=== PATIENT | male | born 1955 | race Caucasian/White ===

== ENCOUNTER 2019-07-02 00:49 | Inpatient (IN) | payer SELFPAY ==
[2019-07-02 02:47] LABS: Troponin I 0.269 ng/mL (< 0.028)
[2019-07-02 02:49] LABS: Phosphorus 5.2 mg/dL (2.3-4.7)
--- NOTE | 2019-07-02 03:10 | PDOC.FPRHP ---
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 Patient reports he presented today because of worsened SOB. He states his chest pressure felt like his last TN. Associated symptoms included decreased appetite, diaphoresis. He reports his dyspnea has much improved since his treatment in [place], and chest pain is resolved. Patient presented to [place] ED. He was tachypneic, tachycardic. WBC 15.1 BNP 1300 Trop 0.2 GFR 28 Cr Cl 40 LA 2.1 CXR L perihilar density, mass vs infiltrate CT chest: interstitial infiltrate bilateral upper, lower and right middle lobe consolidation concerning for infection, bilateral pleural effusions EKG: ST depression in lateral leads He was given levaquin, azithromycin, 60 mg IV lasix, nitro, fentanyl, lopressor. Covid 19 swab was drawn. - Allergies/Adverse Reactions Allergies Allergy/AdvReac Type Severity Reaction Status Date / Time Penicillins Allergy Verified 07/02/19 03:10 - History PMHx: CVA with residual left arm and leg weakness (walks with a cane); T2DM, HTN , tobacco abuse, TN in 2016 s/p stentx1 PSHx: none FHx: two brothers of TN (age 47 and 64) Social: 50 years smoking 1 -2 PPD; used to drink heavily 9 beers/day (none this past week), no drug abuse - Review of Systems General: reports: weight/appetite/sleep changes. denies: fever/chills Eyes: denies: eye pain, vision changes ENT: denies: nasal congestion, rhinorrhea Respiratory: reports: cough, shortness of breath. denies: congestion Cardiovascular: reports: chest pain. denies: palpitation, edema Gastrointestinal: denies: nausea, vomiting, diarrhea, constipation, abdominal pain, GI bleeding Genitourinary: denies: dysuria, polyuria Skin: denies: rashes, lesions Musculoskeletal: denies: pain, tenderness, swelling, arthritis/arthralgias Neurological: reports: weakness (residual from CVA). denies: numbness Psychological: denies: anxiety, depression - Vital signs BP: [110/73] HR: [101] RR: [24] Tmax: [98.6] Pox: [98]% on [2L] Wt: [88.45] - Physical Exam Constitutional: NAD, awake, alert and oriented HEENT: normocephalic and atraumatic, PERRLA, EOMI, conjunctiva clear, MMM, oropharynx clear Neck: supple, trachea midline Heart: RRR, normal S1/S2, pulses present, no edema Lungs: CTAB, no wheezing, no retractions, other (tachypneic) Abdomen: soft, non-tender, no masses/distention Neurological: other (Strength 4/5 LUE, 3/5 LLE RUE and LLE 5/5 strength) Skin: no rash/lesions, good turgor, capillary refill <2 seconds Heme/Lymphatic: no unusual bruising or bleeding, no purpura Psychiatric: normal mood and affect, good judgment and insight, intact recent and remote memory FMR H&P: Results - EKG Interpretation EKG: Repeat EKG - No ST depressions or elevations, incomplete LBBB, QT prolonged (QTc 518), nonspecific ST and T wave abnormality FMR H&P: A/P - Problem List (1) Sepsis Current Visit: Yes Status: Acute Code(s): A41.9 - SEPSIS, UNSPECIFIED ORGANISM (2) Community acquired pneumonia Current Visit: Yes Status: Acute Code(s): J18.9 - PNEUMONIA, UNSPECIFIED ORGANISM (3) HTN (hypertension) Current Visit: Yes Status: Chronic Code(s): I10 - ESSENTIAL (PRIMARY) HYPERTENSION (4) T2DM (type 2 diabetes mellitus) Current Visit: Yes Status: Chronic (5) GRAZYNA (acute kidney injury) Current Visit: Yes Status: Acute Code(s): N17.9 - ACUTE KIDNEY FAILURE, UNSPECIFIED (6) Chest pain Current Visit: Yes Status: Acute Code(s): R07.9 - CHEST PAIN, UNSPECIFIED (7) History of CVA (cerebrovascular accident) Current Visit: Yes Status: Chronic Code(s): Z86.73 - PRSNL HX OF TIA (TIA), AND CEREB INFRC W/O RESID DEFICITS (8) Hx of myocardial infarction Current Visit: Yes Status: Chronic Code(s): I25.2 - OLD MYOCARDIAL INFARCTION (9) Hx of heart artery stent Current Visit: Yes Status: Chronic Code(s): Z95.5 - PRESENCE OF CORONARY ANGIOPLASTY IMPLANT AND GRAFT (10) Transaminitis Current Visit: Yes Status: Acute Code(s): R74.0 - NONSPEC ELEV OF LEVELS OF TRANSAMNS & LACTIC ACID DEHYDRGNSE - Plan 63 yo M presents as a transfer from [place] Sepsis 2/2 bilateral Multilobar Pneumonia, CAP -WBC 15.1, tachypneic and tachycardic -CXR showed suspected COPD, L perihilar mass vs infiltrates -CT - interstitial infiltrate, bilateral upper, right middle and lower lobe consolidation concerning for infection -LA 2.1 -Covid 19 and RVP drawn in [place] -ESR, procal, CRP, D-dimer pending -S/p azithromycin and levaquin 06/30 -Continue Rocephin and azithromycin for CAP -QT somewhat prolonged on EKG, mag pending, on tele monitor, will monitor -Blood and urine cultures drawn in [place] Possible new onset CHF -Echo pending -BNP 1300 -s/p 60 mg IV lasix -Euvolemic on exam, no crackles or LE edema, SOB improved -Recommend Cardiology consult in the AM, appreciate recs, NPO for possible intervention -Strict I/Os, daily weights Typical Chest pain, ACS r/o -HEART score 8. Hx [place] with stentx1 -S/p ASA -Trop 0.2, continue to trend. May be elevated 2/2 to demand -TSH, mag, phos, A1C, lipid panel to risk stratify -Incomplete LBBB on EKG, possibly new -Recommend cards consult in AM T2DM -Not on medications -A1C pending -SSI, ACHS accuchecks Elevated alk phos and AST -Repeat CMP pending Hx CVA -Aware, LUE and LLE weakness Suspected COPD -Not in acute exacerbation currently, will not give steroids Tobacco Abuse -75 PY hx -tariff counsel cessation -Nicotine patch GRAZYNA vs CKD -GFR 28, Cr Cl 40 -possibly 2/2 to Demand -Continue to monitor HTN -patient reports taking lisinopril 10 mg at home -continue if blood pressure tolerates PCP: None DVT ppx: lovenox 40 mg Diet: CC, HH Code status: Full Addendum - Attending - Attending Attestation Date/Time: 07/02/19 2683 I personally evaluated the patient and discussed the management with Dr. [] I agree with the History, Examination, Assessment and Plan documented above with any addition or exceptions noted below. See my dictated H&P for details. doc# [id number].
[2019-07-02 05:43] LABS: Troponin I 0.263 ng/mL (< 0.028)
[2019-07-02] MEDS ORDERED: Acetaminophen 325 MG TAB PO PRN (06:17)
[2019-07-02] MEDS ORDERED: Dextrose 50% Abboject 50 ML SYRINGE SLOW IVP PRN (06:17)
[2019-07-02] MEDS ORDERED: HumaLOG 300 UNITS/3 ML VIAL SC PRN (06:17)
[2019-07-02] MEDS ORDERED: Acetaminophen 650 MG Suppository PR PRN (06:17)
[2019-07-02] MEDS ORDERED: cefTRIAXone\\ROCEPHIN 1 GM in Sodium Chloride 0.9% 100 ML IVPB SCH (06:17)
[2019-07-02] MEDS ORDERED: Dextrose 5% in Water 1,000 ML IV PRN (06:17)
[2019-07-02] MEDS ORDERED: Enoxaparin Sodium 40 MG/0.4 ML SYRINGE SC SCH (06:17)
[2019-07-02] MEDS ORDERED: Prevnar 13-Val Conj/PF 0.5 ML SYRINGE IM ONE (06:45)
--- NOTE | 2019-07-02 06:48 | HP ---
CHIEF COMPLAINT: Shortness of breath, palpitations. HISTORY OF PRESENT ILLNESS: I reviewed the case and discussed care and management of this patient with Dr. Ludy Juarez. I agree with documentation in her H and P unless otherwise stated in the following attestation. In summary, Mr. George is a 63-year-old male with past medical history of hypertension, hyperlipidemia, diabetes mellitus type 2, known coronary artery disease with stent placement and a prior myocardial infarction and CVA with residual left-sided weakness. He states he has been off all medications for significant amount of time as he does not have health insurance and cannot see a provider or afford medication. He presents with a 1-week history of worsening shortness of breath and states this worsened over the past 2-3 days. Also reports occasional palpitations. States that he is becoming short of breath whenever moving. At the ER in [place], he was found to have elevated white count, BNP, and troponin. Chest x-ray and CT were both consistent with multi-lobar pneumonia with moderate-sized bilateral pleural effusions. He was given Levaquin, azithromycin, Lasix, nitroglycerin, and Lopressor. He was also swabbed for November 28 at that time. By the time he arrived to the [place] ER, he stated his symptoms had significantly improved and he would only become short of breath with exertion. Please see Dr. Juarez's note for past medical, surgical, family, and social history PHYSICAL EXAMINATION: VITAL SIGNS: Blood pressure 119/75, pulse is 103, respiratory rate 20, temp 98.1 with a T-max of 98.2 at [place]. GENERAL: Alert and oriented x4. No obvious distress. Appropriately interactive. CARDIOVASCULAR: Normal to borderline tachycardic rate, regular rhythm. No murmurs, rubs, or gallops. PULMONARY: Lungs clear to auscultation bilaterally with no wheezing or crackles. Retractions noted. EXTREMITIES: No peripheral edema. PERTINENT LABORATORY FINDINGS: White blood cell count 15.1 with no obvious left shift and no lymphopenia. Platelets 512, hemoglobin 12.5, creatinine 2.32, BUN 31, AST 71, alkaline phosphatase 187. Initial troponin 0.207 trended up to 0.269. BNP 1301. UA was negative. EKG; 1. Taken in [place] showed sinus tachycardia with ST depressions predominantly noted in lateral leads, most predominant in V4 through V6, AVR, lead I, and lead II. 2. Showed normal sinus rhythm with resolution of ST depressions, possible bundle branch block, QTc prolongation of 518. Chest x-ray interpreted by me, mild costophrenic angle blunting, bilateral infiltrates, worse in the right middle lobe perihilar region, possible increased pulmonary vascular markings. CT chest without contrast report reviewed by me, interlobar emphysematous changes, sublobar consolidations in bilateral upper lobes, right middle lobe, and right lower lobe, small pleural effusions bilaterally. ASSESSMENT AND PLAN: Mr. George is a pleasant 63-year-old male with an extensive cardiac history, extensive smoking history, who has been lost to follow up. He presented with a 1-week history of shortness of breath. He was initially found to be tachycardic with a pulse of 150. Hissymptoms have improved with IV Lasix and IV Lopressor. Given his white count,tachycardia, he met sepsis criteria and his imaging is concerning for possible COVID-19 infection. 1. Sepsis secondary to multi-lobar pneumonia, rule out COVID-19. We will continue azithromycin, add Rocephin. The patient has not received any fluids at this time, but his pulse has responded to IV Lopressor and Lasix. Possible that his symptoms are related to congestive heart failure exacerbation. We placed him in the IMCU for close monitoring and await results for COVID-19. Additional COVID labs have been ordered and will be trended if he is positive. 2. Suspected new onset congestive heart failure. We will continue gentle diuresis. Transthoracic echocardiograms to be ordered. We will consider consulting Cardiology pending results. Once he is out of this exacerbation, we will start him on the appropriate medication including beta-yumiko therapy, LIBRADO inhibitor, and depending on the degree of his heart failure, possibly spironolactone as additional diuretic therapy. 3. Elevated troponin without myocardial infarction. The patient states his chest discomfort has resolved at this time. We will continue to trend. The rate of rise is less concerning for an overt ischemic event, likely related to his sinus tachycardia he experienced in the outside ER. 4. QTc prolongation where we will continue to monitor, especially since he is on azithromycin. 5. Acute kidney injury versus chronic kidney disease. Continue to trend BMP. Also possibility that this is a cardiorenal picture, we will continue to monitor at this time. DISPOSITION: Length of stay inpatient IMCU greater than 2 midnights. TIME SPENT: Approximately 45 minutes critical care time spent on this patient. Job ID: [id number] MTDD
[2019-07-02 07:25] LABS: Hemoglobin A1c 5.8 % (4.0-6.0)
[2019-07-02 07:35] LABS: #Basophils 0.1 thou/uL (0.0-0.2); #Eosinphils 0.4 thou/uL (0.0-0.7); #Lymphocytes 1.7 thou/uL (1.20-3.40); #Monocytes 0.8 thou/uL (0.11-0.59); #Neutrophils 9.1 thou/uL (1.40-6.50); %Basophils 0.8 % (0.0-1.0); %Eosinophils 3.1 % (0.0-10.0); %Lymphocytes 13.6 % (21.0-51.0); %Monocytes 6.9 % (0.0-10.0); %Neutrophils 75.6 % (42.0-75.0); Hemoglobin 12.2 g/dL (14.0-18.0); Mean Corpuscular HGB CONC 32.4 g/dL (32.0-36.0); Mean Corpuscular Hemoglobin 29.5 pg (27.0-31.0); Mean Platelet Volume 7.9 fL (7.4-10.4); Platelet Count 458 thou/uL (130-400); RBC Distribution Width 12.5 % (11.5-14.5); Red Blood Cell (RBC) Count 4.13 mill/uL (4.70-6.10); White Blood Cell (WBC) Count 12.1 thou/uL (4.8-10.8)
[2019-07-02 07:39] LABS: Anion Gap 14 mmol/L (10-20); BUN (Urea Nitrogen) 35 mg/dL (8.4-25.7); Calc. Creatinine Clearance 37 mL/min (70-130); Carbon Dioxide 21 mmol/L (23-31); Chloride 106 mmol/L (98-107); Estimated GFR-MDRD 31; Glucose 117 mg/dL (80-115); Phosphorus 4.5 mg/dL (2.3-4.7); Potassium 4.3 mmol/L (3.5-5.1); Sodium 137 mmol/L (136-145)
[2019-07-02 07:40] LABS: CRP (Inflammatory) 6.06 mg/dL (= or < 0.5); Magnesium 2.1 mg/dL (1.6-2.6)
[2019-07-02] MEDS: Nicotine 21 MG PATCH TD SCH (07:50)
[2019-07-02] MEDS: Aspirin Chewable 81 MG TAB PO SCH (07:50)
[2019-07-02 07:59] LABS: Ferritin 253.57 ng/mL (22-322); Thyroid Stimulating Hormone 1.0285 uIU/mL (0.35-4.94)
[2019-07-02] MEDS: Azithromycin 500 MG in Sodium Chloride 0.9% 250 ML 250 ML IVPB SCH (20:31)
[2019-07-03 04:39] LABS: #Eosinphils 0.3 thou/uL (0.0-0.7); #Lymphocytes 1.9 thou/uL (1.20-3.40); #Monocytes 0.8 thou/uL (0.11-0.59); #Neutrophils 8.8 thou/uL (1.40-6.50); %Basophils 0.3 % (0.0-1.0); %Eosinophils 2.8 % (0.0-10.0); %Monocytes 7.1 % (0.0-10.0); %Neutrophils 73.9 % (42.0-75.0); Hemoglobin 11.9 g/dL (14.0-18.0); Mean Corpuscular HGB CONC 31.2 g/dL (32.0-36.0); Mean Corpuscular Hemoglobin 28.2 pg (27.0-31.0); Mean Corpuscular Volume 90.3 fL (78.0-98.0); Mean Platelet Volume 7.9 fL (7.4-10.4); Platelet Count 420 thou/uL (130-400); RBC Distribution Width 12.5 % (11.5-14.5); Red Blood Cell (RBC) Count 4.21 mill/uL (4.70-6.10); White Blood Cell (WBC) Count 11.9 thou/uL (4.8-10.8)
[2019-07-03 04:52] LABS: ALT (SGPT) 26 U/L (8-55); AST (SGOT) 15 U/L (5-34); Alkaline Phosphatase 135 U/L (40-110); Anion Gap 14 mmol/L (10-20); BUN (Urea Nitrogen) 32 mg/dL (8.4-25.7); Bilirubin, Total 0.4 mg/dL (0.2-1.2); Calc. Creatinine Clearance 42 mL/min (70-130); Calcium 8.7 mg/dL (7.8-10.44); Carbon Dioxide 19 mmol/L (23-31); Cardiac Risk 8.2 (Less than 4.5); Chloride 107 mmol/L (98-107); Cholesterol 164 mg/dl (< 200 Desired); Estimated GFR-MDRD 35; Globulin 3.1 g/dL (2.4-3.5); Glucose 118 mg/dL (80-115); HDL Cholesterol 20 mg/dL (>60 Neg Risk); LDL Cholesterol, Calculated 113 mg/dL; Potassium 4.3 mmol/L (3.5-5.1); Protein, Total 6.1 g/dL (5.8-8.1); Sodium 136 mmol/L (136-145); Triglycerides 155 mg/dL (Less than 150)
--- NOTE | 2019-07-03 06:25 | PDOC.FM ---
- Subjective Subjective: NAEO. Denies chest pain. Breathing comfortably on 2L NC oxygen - Objective Vital Signs & Weight: Vital Signs (12 hours) Temp Pulse Ox 07/03/19 04:00 98.7 F 07/03/19 00:00 98.2 F 07/02/19 20:00 95 07/02/19 19:00 98.2 F Weight Weight 77.1 kg Most Recent Monitor Data Heart Rate from ECG 108 NIBP 140/80 NIBP BP-Mean 100 Respiration from ECG 25 SpO2 98 I&O: 07/01/19 07/02/19 07/03/19 06:59 06:59 06:59 Intake Total 1498 Output Total 1545 Balance -47 Result Diagrams: 07/03/19 04:10 07/03/19 04:10 Phys Exam - Physical Examination Constitutional: NAD HEENT: PERRLA, moist MMs Neck: full ROM dec breath sounds Cardiovascular: no significant murmur tachy Gastrointestinal: soft, non-tender Musculoskeletal: no edema Neurological: moves all 4 limbs Psychiatric: normal affect, A&O x 3 Dx/Plan (1) Prolonged QT interval Code(s): R94.31 - ABNORMAL ELECTROCARDIOGRAM [ECG] [EKG] Status: Acute (2) GRAZYNA (acute kidney injury) Code(s): N17.9 - ACUTE KIDNEY FAILURE, UNSPECIFIED Status: Acute (3) Community acquired pneumonia Code(s): J18.9 - PNEUMONIA, UNSPECIFIED ORGANISM Status: Acute (4) Sepsis Code(s): A41.9 - SEPSIS, UNSPECIFIED ORGANISM Status: Acute (5) HTN (hypertension) Code(s): I10 - ESSENTIAL (PRIMARY) HYPERTENSION Status: Chronic (6) History of CVA (cerebrovascular accident) Code(s): Z86.73 - PRSNL HX OF TIA (TIA), AND CEREB INFRC W/O RESID DEFICITS Status: Chronic (7) Hx of heart artery stent Code(s): Z95.5 - PRESENCE OF CORONARY ANGIOPLASTY IMPLANT AND GRAFT Status: Chronic (8) Hx of myocardial infarction Code(s): I25.2 - OLD MYOCARDIAL INFARCTION Status: Chronic (9) T2DM (type 2 diabetes mellitus) Status: Chronic - Plan Plan: 63 yo M presents as a transfer from [place] Sepsis 2/2 bilateral Multilobar Pneumonia, CAP -WBC 15.1, tachypneic and tachycardic -CXR showed suspected COPD, L perihilar mass vs infiltrates -CT - interstitial infiltrate, bilateral upper, right middle and lower lobe consolidation concerning for infection -LA 2.1 -Covid 19 and RVP drawn in [place] -ESR, procal, CRP, D-dimer -Elevated -Continue Rocephin and azithromycin for CAP -Pending Blood and urine cultures drawn in [place] Possible new onset CHF -Echo pending -BNP 1300 -s/p 60 mg IV lasix -Euvolemic on exam, no crackles or LE edema, respiratory status stable -Strict I/Os, daily weights Typical Chest pain, ACS r/o -HEART score 8. Hx [place] with stentx1 -Cont. ASA -Trop 0.2, downtrended, likely demand -Incomplete LBBB on EKG, possibly new -Stress test s/p COVID testing HLD -ASCVD 27.9% -started statin T2DM -Questionable dx? -A1C 5.8 -SSI, ACHS accuchecks Elevated alk phos and AST -Downtrending, likely 2/2 acute illness Hx CVA -Aware, LUE and LLE weakness-stable Suspected COPD -Not in acute exacerbation currently -Hyperinflated lungs on CXR -80 pack year hx -Will start on half-way COPD maintenance meds Tobacco Abuse -75 PY hx -educational guidance counselor cessation -Nicotine patch GRAZYNA vs CKD -GFR 28, Cr Cl 40 -possibly 2/2 to Demand -Continue to monitor HTN -patient reports taking lisinopril 10 mg at home -continue if blood pressure tolerates PCP: None DVT ppx: lovenox 40 mg Diet: CC, HH Code status: Full Addendum - Attending - Attending Attestation Date/Time: 07/03/19 1004 I personally evaluated the patient and discussed the management with Dr. Jaramillo I agree with the History, Examination, Assessment and Plan documented above with any addition or exceptions noted below. 63 yo M presents as a transfer from [place] for bilateral multilobar PNA and likely COPD exacerbation. Awaiting further workup for CHF because COVID from [place] has not resulted as of yet. Tolerated RA for a while last night, now 2L. Will start MDI as COVID is going to result today per lab staff. Cultures pending. Tx Lovenox for PE until can be r/o'd post-COVID.
[2019-07-03] MEDS: cefTRIAXone\\ROCEPHIN 1 GM in Sodium Chloride 0.9% 100 ML IVPB SCH (07:52)
[2019-07-03] MEDS: Aspirin Chewable 81 MG TAB PO SCH (07:52)
[2019-07-03] MEDS: Nicotine 21 MG PATCH TD SCH (07:53)
[2019-07-03] MEDS ORDERED: NIFEdipine XL 30 MG TAB PO SCH (09:00)
[2019-07-03] MEDS ORDERED: Enoxaparin Sodium 40 MG/0.4 ML SYRINGE SC SCH ×2 (09:00→11:00)
[2019-07-03] MEDS: Albuterol 200 PUFF (6.7GM INHALER) INH PRN (13:28)
[2019-07-03] MEDS: HumaLOG 300 UNITS/3 ML VIAL SC PRN (15:38)
[2019-07-03] MEDS: Enoxaparin Sodium 80 MG/0.8 ML SYRINGE SC SCH (20:11)
[2019-07-03] MEDS: Atorvastatin Calcium 40 MG TAB PO SCH (20:11)
[2019-07-03] MEDS: Diltiazem HCl SR 60 mg Capsule PO SCH (20:11)
[2019-07-03] MEDS: Azithromycin 500 MG in Sodium Chloride 0.9% 250 ML 250 ML IVPB SCH (20:11)
[2019-07-03] MEDS ORDERED: Diazepam 5 MG TAB PO PRN (22:15)
[2019-07-03] MEDS ORDERED: Diazepam 5 MG TAB PO SCH (22:15)
[2019-07-03] MEDS ORDERED: Thiamine HCl 200 MG/2 ML VIAL IM SCH (22:15)
[2019-07-04] MEDS ORDERED: Diazepam 5 MG TAB PO PRN (04:00)
[2019-07-04 04:28] LABS: #Eosinphils 0.2 thou/uL (0.0-0.7); #Lymphocytes 1.9 thou/uL (1.20-3.40); #Monocytes 0.9 thou/uL (0.11-0.59); #Neutrophils 10.8 thou/uL (1.40-6.50); %Basophils 0.4 % (0.0-1.0); %Eosinophils 1.3 % (0.0-10.0); %Lymphocytes 13.9 % (21.0-51.0); %Monocytes 6.6 % (0.0-10.0); %Neutrophils 77.8 % (42.0-75.0); Mean Corpuscular HGB CONC 32.7 g/dL (32.0-36.0); Mean Corpuscular Hemoglobin 29.4 pg (27.0-31.0); Mean Platelet Volume 8.1 fL (7.4-10.4); Platelet Count 443 thou/uL (130-400); RBC Distribution Width 12.5 % (11.5-14.5); Red Blood Cell (RBC) Count 4.08 mill/uL (4.70-6.10); White Blood Cell (WBC) Count 13.9 thou/uL (4.8-10.8)
--- NOTE | 2019-07-04 05:44 | PDOC.FPRHP ---
- Allergies/Adverse Reactions Allergies Allergy/AdvReac Type Severity Reaction Status Date / Time Penicillins Allergy Verified 07/02/19 03:10 - History PMHx: PSHx: FHx: Social: - Vital signs BP: [] HR: [] RR: [] Tmax: [] Pox: []% on [] Wt: [] FMR H&P: Results - Labs Result Diagrams: 07/04/19 04:04 07/03/19 04:10 Lab results: WBC 13.9 thou/uL (4.8-10.8) H 07/04/19 04:04 Hgb 12.0 g/dL (14.0-18.0) L 07/04/19 04:04 Hct 36.7 % (42.0-52.0) L 07/04/19 04:04 MCV 90.0 fL (78.0-98.0) 07/04/19 04:04 Plt Count 443 thou/uL (130-400) H 07/04/19 04:04 Neutrophils % 77.8 % (42.0-75.0) H 07/04/19 04:04 ESR Westergren 51 mm/hr (Less than 20) 07/02/19 07:03 Sodium 136 mmol/L (136-145) 07/03/19 04:10 Potassium 4.3 mmol/L (3.5-5.1) 07/03/19 04:10 Chloride 107 mmol/L (98-107) 07/03/19 04:10 Carbon Dioxide 19 mmol/L (23-31) L 07/03/19 04:10 BUN 32 mg/dL (8.4-25.7) H 07/03/19 04:10 Creatinine 1.93 mg/dL (0.7-1.3) H 07/03/19 04:10 Glucose 118 mg/dL (80-115) H 07/03/19 04:10 Lactic Acid 0.9 mmol/L (0.5-2.2) 07/02/19 05:08 Calcium 8.7 mg/dL (7.8-10.44) 07/03/19 04:10 Total Bilirubin 0.4 mg/dL (0.2-1.2) 07/03/19 04:10 AST 15 U/L (5-34) 07/03/19 04:10 ALT 26 U/L (8-55) 07/03/19 04:10 Alkaline Phosphatase 135 U/L (40-110) H 07/03/19 04:10 C-Reactive Protein 6.06 mg/dL (= or < 0.5) H 07/02/19 07:03 Serum Total Protein 6.1 g/dL (5.8-8.1) 07/03/19 04:10 Albumin 3.0 g/dL (3.4-4.8) L 07/03/19 04:10 FMR H&P: A/P - Problem List (1) GRAZYNA (acute kidney injury) Current Visit: Yes Status: Acute Code(s): N17.9 - ACUTE KIDNEY FAILURE, UNSPECIFIED (2) Chest pain Current Visit: Yes Status: Acute Code(s): R07.9 - CHEST PAIN, UNSPECIFIED (3) Community acquired pneumonia Current Visit: Yes Status: Acute Code(s): J18.9 - PNEUMONIA, UNSPECIFIED ORGANISM (4) Prolonged QT interval Current Visit: Yes Status: Acute Code(s): R94.31 - ABNORMAL ELECTROCARDIOGRAM [ECG] [EKG] (5) Sepsis Current Visit: Yes Status: Acute Code(s): A41.9 - SEPSIS, UNSPECIFIED ORGANISM (6) Transaminitis Current Visit: Yes Status: Acute Code(s): R74.0 - NONSPEC ELEV OF LEVELS OF TRANSAMNS & LACTIC ACID DEHYDRGNSE (7) HTN (hypertension) Current Visit: Yes Status: Chronic Code(s): I10 - ESSENTIAL (PRIMARY) HYPERTENSION (8) History of CVA (cerebrovascular accident) Current Visit: Yes Status: Chronic Code(s): Z86.73 - PRSNL HX OF TIA (TIA), AND CEREB INFRC W/O RESID DEFICITS (9) Hx of heart artery stent Current Visit: Yes Status: Chronic Code(s): Z95.5 - PRESENCE OF CORONARY ANGIOPLASTY IMPLANT AND GRAFT (10) Hx of myocardial infarction Current Visit: Yes Status: Chronic Code(s): I25.2 - OLD MYOCARDIAL INFARCTION (11) T2DM (type 2 diabetes mellitus) Current Visit: Yes Status: Chronic - Plan Patient is a 63 y/o male who presents as a transfer from [facility] with a chief complaint of chest pressure. 1. Sepsis 2/2 Bilateral Multilobar Pneumonia, CAP -Patient was tachypneic and tachycardic upon presentation -WBC: 15.1 > 13.9 -LA: 2.1 -CXR: Suspected COPD w/ left-sided perihilar mass vs. infiltrates -CT: Interstitial infiltrate, bilateral upper, right middle and lower lobe consolidations concerning for infection -COVID-19 ([place]): Negative -RVP ([place]): Pending -ESR: Reportedly elevated -Procal: 0.12 -CRP: 6.06 -D-Dimer: 1.2 -Alk. Phos.: 135 -Will continue Ceftriaxone and Azithromycin as empiric therapy for CAP -BCx ([place]): Pending -UCx ([facility]): Pending 2. New-Onset CHF, suspected -Echo: Pending -BNP: 1300 -s/p 60 mg IV lasix -Euvolemic on exam, no crackles or LE edema, respiratory status stable -Strict I/Os, daily weights 3. Typical Chest Pain, ACS r/o -Patient stated that chest pain was similar to his previous [place] -Trop: 0.269 > 0.263 -Incomplete LBBB on EKG, possibly new -Stress Test s/p COVID testing -Possibly 2/2 demand ischemia -HEART Score: 8 -Hx of previous [place] w/ stent placement x1 -Will continue ASA -See #4 4. HLD -ASCVD: 27.9% -Initiated statin therapy 5. T2DM -Questionable Dx -HgA1c: 5.8 -ACHS Accuchecks -Mild SSI -Bedtime Mild SSI -Will continue to monitor Blood Glucose closely 6. Hx CVA -Aware, LUE and LLE weakness currently at baseline 7. COPD, suspected -Not in acute exacerbation currently -CXR: Hyperinflated lungs -80 PY Hx of Tobacco Abuse -Will start on continuous churn buttermaker COPD maintenance meds 8. Tobacco Abuse -Counseled on the importance of Tobacco Abuse cessation -Nicotine Patch 21 mg Q24H -See #7 9. GRAZYNA vs CKD -Cr: 2.32 > 1.93 -GFR: 28 -Cr: Cl 40 -Possibly 2/2 to demand ischemia -Will continue to monitor closely and trend AM labs -Avoid nephrotoxic agents 10. HTN -Patient reports home regimen of Lisinopril 10 mg PO daily -Will continue as tolerated by BP 11. Transaminitis -AST: 71 on presentation to [facility] ED -Repeat showed downtrending to WNL -Possibly 2/2 acute illness and demand ischemia PCP: CC Code: Full Diet: Heart Health w/ Low Sodium Activity: Ad angelica DVT PPx: Lovenox 40 mg Dispo: Patient is currently stable and admitted to the Telemetry Floor for ongoing treatment of CAP. Will continue ABx regimen as per above and plan for additional cardiac-related testing when tolerable. Expected LOS > 48H. FMR H&P: Upper Level - Plan Date/Time: 07/04/19 0518 I, [], have evaluated this patient and agree with findings/plan as outlined by purchasing internship resident. Pertinent changes/additions are listed here.
[2019-07-04 07:04] LABS: Anion Gap 13 mmol/L (10-20); BUN (Urea Nitrogen) 31 mg/dL (8.4-25.7); Calc. Creatinine Clearance 47 mL/min (70-130); Calcium 8.7 mg/dL (7.8-10.44); Carbon Dioxide 21 mmol/L (23-31); Chloride 107 mmol/L (98-107); Estimated GFR-MDRD 39; Glucose 120 mg/dL (80-115); Potassium 4.3 mmol/L (3.5-5.1); Sodium 137 mmol/L (136-145)
--- NOTE | 2019-07-04 08:25 | RAD ---
Chest one view HISTORY: Pneumonia. Follow-up. COMPARISON: 07/01/2019. FINDINGS: Cardiac silhouette is unremarkable. Pulmonary vasculature predominantly obscured by ill-def ined parenchymal infiltrate projecting over each upper lobe and the left lower lobe. Mediastinum remains midline. Pleural fluid not appreciated on the image. No evidence of pneumothorax. campus monitor leads overlie the chest. IMPRESSION : Multifocal pneumonia. Stable radiographic appearance.
[2019-07-04] MEDS: Enoxaparin Sodium 80 MG/0.8 ML SYRINGE SC SCH ×2 (08:40→20:27)
[2019-07-04] MEDS: Diltiazem HCl SR 60 mg Capsule PO SCH ×2 (08:40→20:27)
[2019-07-04] MEDS: Thiamine 100 MG TAB PO SCH (08:40)
[2019-07-04] MEDS: Nicotine 21 MG PATCH TD SCH (08:40)
[2019-07-04] MEDS: Multivitamin W/ Minerals 1 TAB PO SCH (08:40)
[2019-07-04] MEDS: Aspirin Chewable 81 MG TAB PO SCH (08:40)
[2019-07-04] MEDS: Folic Acid 1 MG TAB PO SCH (08:40)
[2019-07-04] MEDS: Magnesium Oxide 400 MG TAB PO SCH (08:40)
[2019-07-04] MEDS: cefTRIAXone\\ROCEPHIN 1 GM in Sodium Chloride 0.9% 100 ML IVPB SCH (08:41)
--- NOTE | 2019-07-04 09:15 | PDOC.FM ---
- Subjective Subjective: Patient had just finished using the restroom and denied any acute overnight events, such as fevers, chills, chest pain or SOB. Patient did endorse a moderate cough, but state that he otherwise felt well. - Objective Vital Signs & Weight: Vital Signs (12 hours) Temp Pulse Resp BP BP Pulse Ox 07/04/19 08:52 121/69 93 L 07/04/19 08:00 98.4 F 109 H 21 H 121/69 93 L 07/04/19 04:22 172/85 H 07/04/19 03:52 97.8 F 119 H 18 172/85 H 92 L 07/04/19 01:04 97.7 F 105 H 16 116/59 L 116/59 L 96 07/04/19 00:26 98 F 118 H 22 H 132/61 95 07/03/19 22:12 133/84 Weight Admit Weight 76.657 kg Weight 77.927 kg Most Recent Monitor Data Heart Rate from ECG 111 NIBP 158/80 NIBP BP-Mean 106 Respiration from ECG 25 SpO2 98 I&O: 07/03/19 07/04/19 07/05/19 06:59 06:59 06:59 Intake Total 1498 870 360 Output Total 1545 605 Balance -47 265 360 Result Diagrams: 07/04/19 04:04 07/04/19 06:23 Phys Exam - Physical Examination Constitutional: NAD HEENT: PERRLA, moist MMs, sclera anicteric, oral pharynx no lesions Neck: supple, full ROM Respiratory: no wheezing, no rales Course rhonchi bilaterally, w/o E-A egophany Cardiovascular: no significant murmur, no rub Tachycardia Gastrointestinal: soft, non-tender, no distention, positive bowel sounds Musculoskeletal: no edema, pulses present Neurological: non-focal, moves all 4 limbs Patient endorsed mild left-sided weakness, at baseline Lymphatic: no nodes Psychiatric: normal affect, A&O x 3 Skin: no rash Dx/Plan (1) GRAZYNA (acute kidney injury) Code(s): N17.9 - ACUTE KIDNEY FAILURE, UNSPECIFIED Status: Acute (2) Chest pain Code(s): R07.9 - CHEST PAIN, UNSPECIFIED Status: Acute (3) Community acquired pneumonia Code(s): J18.9 - PNEUMONIA, UNSPECIFIED ORGANISM Status: Acute (4) Prolonged QT interval Code(s): R94.31 - ABNORMAL ELECTROCARDIOGRAM [ECG] [EKG] Status: Acute (5) Sepsis Code(s): A41.9 - SEPSIS, UNSPECIFIED ORGANISM Status: Acute (6) Transaminitis Code(s): R74.0 - NONSPEC ELEV OF LEVELS OF TRANSAMNS & LACTIC ACID DEHYDRGNSE Status: Acute (7) HTN (hypertension) Code(s): I10 - ESSENTIAL (PRIMARY) HYPERTENSION Status: Chronic (8) History of CVA (cerebrovascular accident) Code(s): Z86.73 - PRSNL HX OF TIA (TIA), AND CEREB INFRC W/O RESID DEFICITS Status: Chronic (9) Hx of heart artery stent Code(s): Z95.5 - PRESENCE OF CORONARY ANGIOPLASTY IMPLANT AND GRAFT Status: Chronic (10) Hx of myocardial infarction Code(s): I25.2 - OLD MYOCARDIAL INFARCTION Status: Chronic (11) T2DM (type 2 diabetes mellitus) Status: Chronic - Plan Plan: Patient is a 63 y/o male who presents as a transfer from [facility] ED with a chief complaint of chest pressure. 1. Sepsis 2/2 Bilateral Multilobar Pneumonia, CAP -Patient was tachypneic and tachycardic upon presentation -WBC: 15.1 > 13.9 -LA: 2.1 -CXR: Suspected COPD w/ left-sided perihilar mass vs. infiltrates -CT: Interstitial infiltrate, bilateral upper, right middle and lower lobe consolidations concerning for infection -COVID-19 ([facility]): Negative -RVP ([facility]): Pending -ESR: Reportedly elevated -Procal: 0.12 -CRP: 6.06 -D-Dimer: 1.2 -Alk. Phos.: 135 -Will continue Ceftriaxone and Azithromycin as empiric therapy for CAP -BCx ([facility]): Pending -UCx ([facility]): Pending 2. New-Onset CHF, suspected -Echo: Pending -BNP: 1300 -s/p 60 mg IV lasix -Euvolemic on exam, no crackles or LE edema, respiratory status stable -Strict I/Os, daily weights 3. Typical Chest Pain, ACS r/o -Patient stated that chest pain was similar to his previous HI -Trop: 0.269 > 0.263 -Incomplete LBBB on EKG, possibly new -Stress Test s/p COVID testing -Possibly 2/2 demand ischemia -HEART Score: 8 -Hx of previous HI w/ stent placement x1 -Will continue ASA -See #4 4. HLD -ASCVD: 27.9% -Initiated statin therapy 5. T2DM -Questionable Dx -HgA1c: 5.8 -ACHS Accuchecks -Mild SSI -Bedtime Mild SSI -Will continue to monitor Blood Glucose closely 6. Hx CVA -Aware, LUE and LLE weakness currently at baseline 7. 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 Tobacco Abuse -Counseled on the importance of Tobacco Abuse cessation -Nicotine Patch 21 mg Q24H -See #7 9. GRAZYNA vs CKD -Cr: 2.32 > 1.93 -GFR: 28 -Cr: Cl 40 -Possibly 2/2 to demand ischemia -Will continue to monitor closely and trend AM labs -Avoid nephrotoxic agents 10. HTN -Patient reports home regimen of Lisinopril 10 mg PO daily -Will continue as tolerated by BP 11. Transaminitis -AST: 71 on presentation to [facility] ED -Repeat showed downtrending to WNL -Possibly 2/2 acute illness and demand ischemia PCP: CC Code: Full Diet: Heart Health w/ Low Sodium Activity: Ad angelica DVT PPx: Lovenox 40 mg Dispo: Patient is currently stable and admitted to the Telemetry Floor for ongoing treatment of CAP. Will continue ABx regimen as per above and plan for additional cardiac-related testing when tolerable. Expected LOS > 48H. Addendum - Attending - Attending Attestation Date/Time: 07/04/19 4036 I personally evaluated the patient and discussed the management with Dr. Muniz I agree with the History, Examination, Assessment and Plan documented above with any addition or exceptions noted below. 63 yo M presents as a transfer from [facility] for bilateral multilobar PNA. This is complicated by possible new onset CHF and possible COPD exacerbation. His workup has been delayed by awaiting COVID results which was negative. Echo pending. We are going to check a CTA because of persistent tachycardia, o2 requirement, and elevated BNP indicating possible cardiac strain. GFR is 39, will order 500ml bouls before CTA. Pending negative CTA and echo results will consult Cardiology. Start duonebs now that COVID is negative.
[2019-07-04] MEDS ORDERED: Iopamidol-370 76% 500 ML 1 ML ONE (09:44)
[2019-07-04] MEDS ORDERED: Lactated Ringer's 500 ML IV SCH (10:00)
[2019-07-04] MEDS: chlordiazePOXIDE HCl 25 MG CAP PO SCH ×3 (11:09→20:27)
--- NOTE | 2019-07-04 13:25 | CT ---
EXAM CT ANGIOGRAM CHEST WITH 3D RENDERING: History: Pneumonia, cough, shortness of breath. Comparison: Chest CT without contrast, 07-01-2019 FINDINGS: Enlarging bilateral pleural effusions. Worsening bilateral alveolar and ground glass opacity infiltra anup involving the posterior aspects of the right and left upper lobes and superior segments of the ri ght and left lower lobes. There are some minimally enlarged mediastinal lymph nodes including a right paratracheal node measuring 1.6 cm in short axis, left paratracheal nodes up to 1.1 cm as well as so me minimal enlarged right and left hilar nodes and prevascular nodes. No CT evidence for significant acute pulmonary embolism. No evidence for aortic aneurysm. Visualized upper abdomen is unremarkable. IMPRESSION: Worsening bilateral pleural effusions and worsening bilateral pneumonia. Mediastinal and hilar adenop athy, little changed. No convincing CT evidence for acute pulmonary embolism. POS: [facility]
--- NOTE | 2019-07-04 14:09 | CON ---
DATE OF CONSULTATION: HISTORY OF PRESENT ILLNESS: Skyler George is a 63-year-old male, who reported 10 days of a cough leading up to this admission. He presented to the [place] [facility]. He had patchy alveolar infiltrates. Apparently, he had stopped all of his blood pressure medicines and his diabetes medicines. He tells me that he takes his medications when he feels like he needs them. He had a dry cough, but said he could not cough anything up. He denied pleuritic chest discomfort. He was seen in the emergency department, given Lasix and noted improvement within an hour. He was transferred over here for further workup. PAST MEDICAL HISTORY: Remarkable for; 1. Diabetes. 2. Hypertension. 3. Coronary artery disease. 4. History of coronary stent. 5. History of CVA. SOCIAL HISTORY: He is a smoker. He has been a heavy beer drinker most of his life. He does not use drugs. FAMILY HISTORY: Positive for vascular disease. Negative for lung disease in early age. REVIEW OF SYSTEMS: Ten-point review of systems otherwise negative. He says he feels good and he is starting to cough up some sputum. PHYSICAL EXAMINATION: VITAL SIGNS: He is afebrile. Heart rate is 109, respiratory rate is 21, oximetry is 93, and blood pressure 120/69. HEAD AND NECK: Unremarkable. LUNGS: Remarkable for equal breath sounds. I did not hear any wheezes. HEART: Regular rhythm. S1 and S2 are normal. No gallop. ABDOMEN: Soft and nontender. EXTREMITIES: Without clubbing, cyanosis, or edema. LABORATORY DATA: White count 13.9, hemoglobin 12.0, and platelets 443. Sodium 137, potassium 4.3, chloride 107, bicarb 21, BUN 31, creatinine 1.76, glucose 120. Chest CT done in [place] shows patchy bilateral alveolar infiltrates, more consistent with pneumonia than edema. He is improving with Lasix already, there may have been a component of congestive heart failure mixed in with this. Chest radiograph today still shows persistent bilateral patchy infiltrates. He could be switched to p.o. antimicrobial therapy. He can be assessed for home oxygen needs in the morning. This is a 50-minute consult, 50% of the time was spent on the unit coordinating care. Job ID: [id number]
[2019-07-04] MEDS ORDERED: Furosemide 20 MG/2 ML VIAL SLOW IVP SCH (15:15)
[2019-07-04] MEDS: Atorvastatin Calcium 40 MG TAB PO SCH (20:27)
[2019-07-04] MEDS: Azithromycin 500 MG in Sodium Chloride 0.9% 250 ML 250 ML IVPB SCH (20:34)
[2019-07-05] MEDS: chlordiazePOXIDE HCl 25 MG CAP PO SCH ×4 (03:51→21:07)
[2019-07-05 04:34] LABS: #Basophils 0.1 thou/uL (0.0-0.2); #Eosinphils 0.1 thou/uL (0.0-0.7); #Monocytes 1.1 thou/uL (0.11-0.59); #Neutrophils 9.9 thou/uL (1.40-6.50); %Basophils 0.6 % (0.0-1.0); %Eosinophils 0.8 % (0.0-10.0); %Lymphocytes 14.9 % (21.0-51.0); %Monocytes 8.1 % (0.0-10.0); %Neutrophils 75.6 % (42.0-75.0); Hemoglobin 12.4 g/dL (14.0-18.0); Mean Corpuscular Volume 90.8 fL (78.0-98.0); Mean Platelet Volume 8.3 fL (7.4-10.4); Platelet Count 408 thou/uL (130-400); RBC Distribution Width 12.7 % (11.5-14.5); Red Blood Cell (RBC) Count 4.26 mill/uL (4.70-6.10); White Blood Cell (WBC) Count 13.1 thou/uL (4.8-10.8)
[2019-07-05 04:51] LABS: Anion Gap 15 mmol/L (10-20); BUN (Urea Nitrogen) 32 mg/dL (8.4-25.7); Calc. Creatinine Clearance 44 mL/min (70-130); Calcium 9.1 mg/dL (7.8-10.44); Carbon Dioxide 22 mmol/L (23-31); Chloride 105 mmol/L (98-107); Estimated GFR-MDRD 36; Glucose 131 mg/dL (80-115); Potassium 4.1 mmol/L (3.5-5.1); Sodium 138 mmol/L (136-145)
--- NOTE | 2019-07-05 05:39 | PDOC.FM ---
- Subjective Subjective: He says his breathing is much improved this morning with the dose of Lasix he received last night. He does not complain of chest pain. - Objective MAR Reviewed: Yes Vital Signs & Weight: Vital Signs (12 hours) Temp Pulse Resp BP BP Pulse Ox 07/05/19 03:47 97.6 F 110 H 18 159/86 H 92 L 07/04/19 20:17 98.6 F 120 H 16 136/83 136/83 96 Weight Admit Weight 76.657 kg Weight 77.111 kg Most Recent Monitor Data Heart Rate from ECG 111 NIBP 158/80 NIBP BP-Mean 106 Respiration from ECG 25 SpO2 98 I&O: 07/03/19 07/04/19 07/05/19 06:59 06:59 06:59 Intake Total 8886 883 5388 Output Total 1545 605 400 Balance -47 265 989 Result Diagrams: 07/05/19 03:54 07/05/19 03:53 EKG Reviewed by me: Yes (Sinus tachy 100-110s with PVCs) Phys Exam - Physical Examination Constitutional: NAD HEENT: PERRLA, moist MMs Neck: no nodes, supple Wheeze present on left with decreased breath sounds throughout Tachycardic with regular rhythm Gastrointestinal: soft, non-tender, positive bowel sounds Musculoskeletal: no edema, pulses present Neurological: normal sensation Psychiatric: normal affect Skin: no rash, normal turgor Dx/Plan (1) Community acquired pneumonia Code(s): J18.9 - PNEUMONIA, UNSPECIFIED ORGANISM Status: Acute (2) Sepsis Code(s): A41.9 - SEPSIS, UNSPECIFIED ORGANISM Status: Acute (3) Heart failure Code(s): I50.9 - HEART FAILURE, UNSPECIFIED Status: Acute (4) GRAZYNA (acute kidney injury) Code(s): N17.9 - ACUTE KIDNEY FAILURE, UNSPECIFIED Status: Acute (5) Chest pain Code(s): R07.9 - CHEST PAIN, UNSPECIFIED Status: Acute (6) Prolonged QT interval Code(s): R94.31 - ABNORMAL ELECTROCARDIOGRAM [ECG] [EKG] Status: Acute (7) HTN (hypertension) Code(s): I10 - ESSENTIAL (PRIMARY) HYPERTENSION Status: Chronic (8) History of CVA (cerebrovascular accident) Code(s): Z86.73 - PRSNL HX OF TIA (TIA), AND CEREB INFRC W/O RESID DEFICITS Status: Chronic (9) Hx of heart artery stent Code(s): Z95.5 - PRESENCE OF CORONARY ANGIOPLASTY IMPLANT AND GRAFT Status: Chronic (10) Hx of myocardial infarction Code(s): I25.2 - OLD MYOCARDIAL INFARCTION Status: Chronic (11) T2DM (type 2 diabetes mellitus) Status: Chronic - Plan Plan: Patient is a 63 y/o male who presents as a transfer from [facility] ED with a chief complaint of chest pressure that has since resolved. 1. Sepsis 2/2 Bilateral Multilobar Pneumonia, CAP Patient was tachypneic and tachycardic upon presentation * Labs * WBC: 15.1 > 13.9 > 13.1 * LA: 2.1 * COVID-19 ([facility]): Negative * RVP ([facility]): Negative * ESR: Reportedly elevated * Procal: 0.12 * CRP: 6.06 * D-Dimer: 1.2 * Alk. Phos.: 135 * Imaging * CXR: Suspected COPD w/ left-sided perihilar mass vs. infiltrates * CT: Interstitial infiltrate, bilateral upper, right middle and lower lobe consolidations concerning for infection * Cultures * BCx ([facility]): Pending * UCx ([facility]): Pending * Will transition to oral Amoxicillin & Azithromycin as empiric therapy for CAP 2. New-Onset CHF, suspected Euvolemic on exam, no crackles or LE edema, respiratory status stable * Echo: EF 25-30% * s/p 60 mg IV lasix & 20 mg IV * Strict I/Os, daily weights * We will consult cardiology today. 3. Typical Chest Pain, ACS r/o- Possibly 2/2 demand ischemia Patient stated that chest pain was similar to his previous TN * EKG- Incomplete LBBB, possibly new * Trop: 0.269 > 0.263 * Stress Test s/p COVID testing * Will discuss with Cardio today * HEART Score: 8 * Hx of previous TN w/ stent placement x1 * Will continue ASA 4. HLD ASCVD: 27.9% * Atorvastatin 40 mg QHS started 5. T2DM Questionable Dx * HgA1c: 5.8 * ACHS Accuchecks, Mild SSI, Bedtime Mild SSI * Will continue to monitor Blood Glucose closely 6. Hx CVA Aware, LUE and LLE weakness currently at baseline 7. COPD, suspected Not in acute exacerbation currently * CXR: Hyperinflated lungs * Hx of Tobacco Abuse * Will start on group home COPD maintenance meds * Currently being seen by case managment, we will see what he can afford 8. Tobacco Abuse Counseled on the importance of Tobacco Abuse cessation * Nicotine Patch 21 mg Q24H 9. GRAZYNA vs CKD Cr: 2.32 > 1.93 > 1.88 * GFR: 34, CrCl: 34 * Possibly 2/2 to demand ischemia * Will continue to monitor closely and trend AM labs * Avoid nephrotoxic agents 10. HTN Patient reports home regimen of Lisinopril 10 mg PO daily * Will continue as tolerated by BP 11. Transaminitis- Resolved AST: 71 on presentation to [facility] ED * Repeat showed downtrending to WNL * Possibly 2/2 acute illness and demand ischemia PCP: [facility] Code: Full Diet: Heart Health w/ Low Sodium Activity: Ad angelica DVT PPx: Lovenox 40 mg Dispo: Tele inpt for ongoing treatment of CAP. Will transition to po Abx regimen and consult Cardiology today. Expected LOS > 48H. Addendum - Attending - Attending Attestation Date/Time: 07/05/19 0438 I personally evaluated the patient and discussed the management with Dr. Corrales. I agree with the History, Examination, Assessment and Plan documented above with any addition or exceptions noted below. Patient overall stable. Cardiology on board given his severe sCHF. He continues on treatment for pneumonia. Improved oxygenation. Renal function currently CKD3. We are stopping therapeutic lovenox as no indication to continue at this time.
[2019-07-05] MEDS: Enoxaparin Sodium 80 MG/0.8 ML SYRINGE SC SCH (09:24)
[2019-07-05] MEDS: Aspirin Chewable 81 MG TAB PO SCH (09:24)
[2019-07-05] MEDS: Diltiazem HCl SR 60 mg Capsule PO SCH (09:24)
[2019-07-05] MEDS: Multivitamin W/ Minerals 1 TAB PO SCH (09:24)
[2019-07-05] MEDS: Magnesium Oxide 400 MG TAB PO SCH (09:24)
[2019-07-05] MEDS: Thiamine 100 MG TAB PO SCH (09:24)
[2019-07-05] MEDS: Folic Acid 1 MG TAB PO SCH (09:24)
[2019-07-05] MEDS: Nicotine 21 MG PATCH TD SCH (09:25)
[2019-07-05] MEDS: cefTRIAXone\\ROCEPHIN 1 GM in Sodium Chloride 0.9% 100 ML IVPB SCH (09:25)
[2019-07-05] MEDS ORDERED: Enoxaparin Sodium 40 MG/0.4 ML SYRINGE SC SCH (10:30)
--- NOTE | 2019-07-05 12:56 | PRG ---
DATE OF SERVICE: 07/05/2019 SUBJECTIVE: The patient is doing okay. No acute complaints. OBJECTIVE: VITAL SIGNS: Temperature 97.7, pulse 113, respirations 22, O2 saturation 98% on 2 L, blood pressure 142/79. HEENT: Unremarkable. NECK: No adenopathy or JVD. LUNGS: Fairly clear. CARDIAC: S1 and S2 regular. ABDOMEN: Soft. EXTREMITIES: No edema. LABORATORY DATA: White blood cell count 13.1, hematocrit 38.7, platelet count 409. Sodium 138, potassium 4.1, BUN 32, creatinine 1.8, glucose 131. ASSESSMENT: 1. Pulmonary edema. 2. Pneumonia. PLAN: Continue current care with antibiotics and diuretics. We will follow. Job ID: [id number]
[2019-07-05] MEDS ORDERED: Carvedilol 3.125 MG TAB PO SCH (17:00)
[2019-07-05] MEDS: Albuterol 200 PUFF (6.7GM INHALER) INH PRN (21:09)
[2019-07-05] MEDS: Azithromycin 500 MG in Sodium Chloride 0.9% 250 ML 250 ML IVPB SCH (21:12)
[2019-07-05] MEDS: Atorvastatin Calcium 40 MG TAB PO SCH (21:13)
--- NOTE | 2019-07-05 23:29 | CON ---
DATE OF CONSULTATION: HISTORY OF PRESENT ILLNESS: Skyler George is a 63-year-old white male who presented to the [place] [facility] complaining of some chest pressure as well as increased shortness of breath for several days. He has history of previous myocardial infarction in 2016 with a stent placed at [facility] in [place]. Also 14 years ago, he had a stroke with residual left arm and left leg weakness. He was given Lasix in the emergency room in [place] with improvement in his symptoms. He states his dyspnea is dramatically improved. PAST MEDICAL HISTORY: CVA, history of myocardial infarction, stent placement, diabetes, hypertension. MEDICATIONS: He states he gets lisinopril 20 mg from a friend of his, bites it in half and takes a half tablet once a day. He also takes an aspirin once a day. He states he has stopped taking all of his other diabetes and cardiac medications. ALLERGIES: PENICILLIN. SOCIAL HISTORY: He smokes 1-1.5 packs per day. Drinks 6 or 8 beers per day. FAMILY HISTORY: Two brothers of myocardial infarction at age 47 and 64. REVIEW OF SYSTEMS: 12-point review of systems is otherwise unremarkable. PHYSICAL EXAMINATION: VITAL SIGNS: 144/75, pulse of 110. HEENT: PERRL. NECK: Supple. CHEST: Clear. CARDIAC: S1 and S2 normal without any S3, S4, or murmurs. Carotid upstrokes normal without bruits. ABDOMEN: Normal bowel sounds without tenderness or organomegaly. EXTREMITIES: Revealed trace pretibial edema. NEUROLOGIC: Grossly intact. SKIN: Warm and dry. LABORATORY DATA: EKG revealed normal sinus rhythm with incomplete left bundle-branch block, nonspecific ST and T-wave changes. It is of note that the EKG in [place] revealed approximately [address]-segment depression in V4 through V6, which were not apparent on the EKG here. Echocardiogram revealed ejection fraction of 25% to 30% with akinesis of the anterior and septal [place], diastolic dysfunction could not be assessed, moderate mitral regurgitation, mild tricuspid regurgitation. Chest x- ray revealed bilateral infiltrates. Chest CT revealed bilateral pleural effusions and bilateral pneumonia. There is no evidence of pulmonary embolism. Hemoglobin 12.4; hematocrit 38.7; white count 13,100; platelets 408,000. D- dimer 1.20. Sodium 138, potassium 4.1, chloride 105, carbon dioxide 24, BUN 32, creatinine 1.88 (creatinine is down from 2.32 at admission), cholesterol 164, triglycerides 155, HDL 20, LDL 113. Troponin I is 0.269. BNP 1301.0. TSH is normal. IMPRESSION: 1. [id number] systolic congestive heart failure. 2. Ischemic cardiomyopathy with ejection fraction of 25% to 30%. 3. History of myocardial infarction with stent placement in 2016. 4. History of cerebrovascular accident with resulting left-sided hemiparesis 14 years ago. 5. Hypertension, uncontrolled. 6. Hypercholesterolemia, untreated. 7. Diabetes. 8. Smoker. 9. Positive family history. 10. ETOH abuse. 11. Chronic kidny disease. PLAN: The patient has been transitioned to p.o. antibiotics. He has been placed on aspirin, atorvastatin, low-dose carvedilol. I will increase his carvedilol to 6.25 b.i.d. He will be gently diuresed and his creatinine followed closely. He also chronic kidney disease and Entresto will be avoided due to his lack of funding, lack of insurance, and inability to pay for it. If his creatinine continues to remain elevated, LIBRADO and ARB drugs probably will need to be avoided as well. We will follow the patient with you. Job ID: [id number]
[2019-07-06] MEDS: chlordiazePOXIDE HCl 25 MG CAP PO SCH ×4 (03:52→21:49)
[2019-07-06 04:53] LABS: Anion Gap 15 mmol/L (10-20); BUN (Urea Nitrogen) 32 mg/dL (8.4-25.7); Calc. Creatinine Clearance 52 mL/min (70-130); Calcium 8.7 mg/dL (7.8-10.44); Carbon Dioxide 20 mmol/L (23-31); Chloride 106 mmol/L (98-107); Estimated GFR-MDRD 44; Glucose 127 mg/dL (80-115); Sodium 137 mmol/L (136-145)
--- NOTE | 2019-07-06 06:22 | PDOC.FM ---
- Subjective Subjective: He says he is not feeling short of breath. He feels like the mucous in his chest is breaking up. - Objective MAR Reviewed: Yes Vital Signs & Weight: Vital Signs (12 hours) Temp Pulse Resp BP BP BP Pulse Ox 07/06/19 03:57 118/65 07/06/19 03:54 97.9 F 97 22 H 118/65 92 L 07/06/19 03:00 101 H 18 92 L 07/06/19 00:00 97.8 F 100 20 121/66 92 L 07/05/19 20:00 96.9 F L 104 H 22 H 143/83 H 94 L Weight Admit Weight 76.657 kg Weight 78.471 kg Most Recent Monitor Data Heart Rate from ECG 111 NIBP 158/80 NIBP BP-Mean 106 Respiration from ECG 25 SpO2 98 I&O: 07/04/19 07/05/19 07/06/19 06:59 06:59 06:59 Intake Total 870 1759 1130 Output Total 605 1100 920 Balance 265 659 210 Result Diagrams: 07/05/19 03:54 07/06/19 04:04 EKG Reviewed by me: Yes (Sinus Tach) Phys Exam - Physical Examination Constitutional: NAD HEENT: moist MMs, sclera anicteric, oral pharynx no lesions Neck: no nodes, supple Respiratory: no wheezing, no rales, no rhonchi Cardiovascular: RRR, no significant murmur Gastrointestinal: soft, non-tender, positive bowel sounds Musculoskeletal: no edema, pulses present Neurological: moves all 4 limbs Psychiatric: normal affect Skin: no rash, normal turgor Dx/Plan (1) Heart failure with reduced ejection fraction Code(s): I50.20 - UNSPECIFIED SYSTOLIC (CONGESTIVE) HEART FAILURE Status: Acute (2) Community acquired pneumonia Code(s): J18.9 - PNEUMONIA, UNSPECIFIED ORGANISM Status: Acute (3) Sepsis Code(s): A41.9 - SEPSIS, UNSPECIFIED ORGANISM Status: Acute (4) GRAZYNA (acute kidney injury) Code(s): N17.9 - ACUTE KIDNEY FAILURE, UNSPECIFIED Status: Acute (5) Chest pain Code(s): R07.9 - CHEST PAIN, UNSPECIFIED Status: Acute (6) Prolonged QT interval Code(s): R94.31 - ABNORMAL ELECTROCARDIOGRAM [ECG] [EKG] Status: Acute (7) HTN (hypertension) Code(s): I10 - ESSENTIAL (PRIMARY) HYPERTENSION Status: Chronic (8) History of CVA (cerebrovascular accident) Code(s): Z86.73 - PRSNL HX OF TIA (TIA), AND CEREB INFRC W/O RESID DEFICITS Status: Chronic (9) Hx of heart artery stent Code(s): Z95.5 - PRESENCE OF CORONARY ANGIOPLASTY IMPLANT AND GRAFT Status: Chronic (10) Hx of myocardial infarction Code(s): I25.2 - OLD MYOCARDIAL INFARCTION Status: Chronic (11) T2DM (type 2 diabetes mellitus) Status: Chronic - Plan Plan: Patient is a 63 y/o male who presents as a transfer from [facility] ED with a chief complaint of chest pressure that has since resolved. 1. Sepsis 2/2 Bilateral Multilobar Pneumonia, CAP Patient was tachypneic and tachycardic upon presentation * Labs * WBC: 15.1 > 13.9 > 13.1 * LA: 2.1 * COVID-19 ([place]): Negative * RVP ([place]): Negative * ESR: Reportedly elevated * Procal: 0.12 * CRP: 6.06 * D-Dimer: 1.2 * Alk. Phos.: 135 * Imaging * CXR: Suspected COPD w/ left-sided perihilar mass vs. infiltrates * CT: Interstitial infiltrate, bilateral upper, right middle and lower lobe consolidations concerning for infection * Cultures * BCx ([place]): NG@48H * UCx ([place]): NG * Will continue on Ceftriaxone & Azithromycin as empiric therapy for CAP until discharge ready then will change to Omnicef & Azithro PO for discharge 2. HFrEF Euvolemic on exam, no crackles or LE edema, respiratory status stable * Echo: EF 25-30% * s/p 60 mg IV lasix & 20 mg IV * Strict I/Os, daily weights * Consulted Cardiology, appreciate recs. * Carvedilol started yesterday & increased to 6.125 mg BID * Started on Lasix 20 mg IV daily 3. Typical Chest Pain, ACS r/o- Possibly 2/2 demand ischemia Patient stated that chest pain was similar to his previous ND * EKG- Incomplete LBBB, possibly new * Trop: 0.269 > 0.263 * Stress Test s/p COVID testing * Will discuss with Cardio today * HEART Score: 8 * Hx of previous ND w/ stent placement x1 * Will continue ASA 4. HLD ASCVD: 27.9% * Atorvastatin 40 mg QHS started 5. T2DM Questionable Dx * HgA1c: 5.8 * ACHS Accuchecks, Mild SSI, Bedtime Mild SSI * Will continue to monitor Blood Glucose closely 6. Hx CVA Aware, LUE and LLE weakness currently at baseline 7. COPD, suspected Not in acute exacerbation currently * CXR: Hyperinflated lungs * Hx of Tobacco Abuse * Will start on longterm COPD maintenance meds: Atrovent * Currently being seen by case managment, we will see what he can afford 8. Tobacco Abuse Counseled on the importance of Tobacco Abuse cessation * Nicotine Patch 21 mg Q24H 9. GRAZYNA vs CKD Cr: 2.32 > 1.93 > 1.88 > 1.58 * GFR: 44 * Possibly 2/2 to demand ischemia * Will continue to monitor closely and trend AM labs * Avoid nephrotoxic agents 10. HTN Patient reports home regimen of Lisinopril 10 mg PO daily * Will continue as tolerated by BP * Carvedilol 6.25 mg BID added on yesterda 11. Transaminitis- Resolved AST: 71 on presentation to [facility] ED * Repeat showed downtrending to WNL * Possibly 2/2 acute illness and demand ischemia PCP: CC Code: Full Diet: Heart Health w/ Low Sodium Activity: Ad angelica DVT PPx: Lovenox 40 mg Dispo: Tele inpt for ongoing treatment of CAP. Will wean down on oxygen today with continued diuresis while monitoring kidneys and start COPD. Will follow up with case management on discharge planning. Expected LOS > 48H. Addendum - Attending - Attending Attestation Date/Time: 07/06/19 1192 I personally evaluated the patient and discussed the management with Dr. Corrales. I agree with the History, Examination, Assessment and Plan documented above with any addition or exceptions noted below. Patient resteing comfortably. Continue treatment for PNA. Cardiology on board for new onset heart failure. Will need rehab but unfunded, will need CM on board to help with placement and med assistance.
[2019-07-06] MEDS ORDERED: Carvedilol 6.25 MG TAB PO SCH (08:00)
[2019-07-06] MEDS: Folic Acid 1 MG TAB PO SCH (08:25)
[2019-07-06] MEDS: Enoxaparin Sodium 40 MG/0.4 ML SYRINGE SC SCH (08:25)
[2019-07-06] MEDS: Magnesium Oxide 400 MG TAB PO SCH (08:25)
[2019-07-06] MEDS: Aspirin Chewable 81 MG TAB PO SCH (08:25)
[2019-07-06] MEDS: Multivitamin W/ Minerals 1 TAB PO SCH (08:25)
[2019-07-06] MEDS: Thiamine 100 MG TAB PO SCH (08:25)
[2019-07-06] MEDS: cefTRIAXone\\ROCEPHIN 1 GM in Sodium Chloride 0.9% 100 ML IVPB SCH (08:25)
[2019-07-06] MEDS: Nicotine 21 MG PATCH TD SCH (08:26)
[2019-07-06] MEDS ORDERED: Furosemide 20 MG/2 ML VIAL SLOW IVP SCH ×2 (09:00→14:00)
[2019-07-06] MEDS: Ipratropium Oral Inhaler INH SCH ×3 (11:01→18:23)
[2019-07-06] MEDS: Carvedilol 6.25 MG TAB PO SCH ×2 (14:44→22:03)
--- NOTE | 2019-07-06 16:59 | PRG ---
DATE OF SERVICE: 07/06/2019 SUBJECTIVE: Skyler George has no new complaints. He was receiving metered-dose inhaler treatment when I walked in the room. We switched him to nebulizer treatments. He has had no fever. He had a CT angiogram showing no embolic disease. OBJECTIVE: LUNGS: Remarkable for coarse equal breath sounds. HEART: Regular rhythm. ABDOMEN: Soft. LABORATORY DATA: Sodium 137, potassium 4, chloride 106, bicarb 20, BUN 32, and creatinine 1.58. IMPRESSION: 1. Pneumonia. 2. Congestive heart failure. 3. Medical noncompliance. 4. Probable chronic obstructive pulmonary disease. We will discontinue the IV antibiotics. Job ID: [id number]
[2019-07-06] MEDS: Atorvastatin Calcium 40 MG TAB PO SCH (21:49)
[2019-07-06] MEDS: Cefdinir 300 MG CAP PO SCH (21:49)
[2019-07-06] MEDS: Azithromycin 500 MG in Sodium Chloride 0.9% 250 ML 250 ML IVPB SCH (22:04)
[2019-07-07] MEDS: chlordiazePOXIDE HCl 25 MG CAP PO SCH (02:08)
[2019-07-07 05:18] LABS: Anion Gap 12 mmol/L (10-20); BUN (Urea Nitrogen) 35 mg/dL (8.4-25.7); Calc. Creatinine Clearance 50 mL/min (70-130); Calcium 8.7 mg/dL (7.8-10.44); Carbon Dioxide 24 mmol/L (23-31); Chloride 104 mmol/L (98-107); Estimated GFR-MDRD 42; Glucose 163 mg/dL (80-115); Sodium 136 mmol/L (136-145)
--- NOTE | 2019-07-07 06:14 | PDOC.FM ---
- Subjective Subjective: Pt says he is continuing to breath better. He is eating well. He does not complain of any edema. He states he is sleeping well. - Objective MAR Reviewed: Yes Vital Signs & Weight: Vital Signs (12 hours) Temp Pulse Resp BP BP Pulse Ox 07/07/19 03:54 97.2 F L 92 23 H 117/63 92 L 07/06/19 23:35 20 94 L 07/06/19 22:03 138/83 07/06/19 21:33 97.6 F 105 H 20 138/83 138/83 94 L 07/06/19 18:32 100 20 93 L Weight Admit Weight 76.657 kg Weight 78.471 kg Most Recent Monitor Data Heart Rate from ECG 111 NIBP 158/80 NIBP BP-Mean 106 Respiration from ECG 25 SpO2 98 I&O: 07/05/19 07/06/19 07/07/19 06:59 06:59 06:59 Intake Total 1759 1130 960 Output Total 7661 407 1892 Balance 659 210 -90 Result Diagrams: 07/05/19 03:54 07/07/19 04:48 EKG Reviewed by me: Yes (Sinus Rhythm- Sinus Tach 90s-110s) Phys Exam - Physical Examination Constitutional: NAD HEENT: moist MMs, sclera anicteric, oral pharynx no lesions Neck: no nodes, supple Respiratory: no wheezing, no rales, no rhonchi, clear to auscultation bilateral Cardiovascular: RRR, no significant murmur, no rub Gastrointestinal: soft, non-tender, positive bowel sounds Musculoskeletal: no edema, pulses present Neurological: moves all 4 limbs Psychiatric: normal affect Skin: no rash, normal turgor Dx/Plan (1) Heart failure with reduced ejection fraction Code(s): I50.20 - UNSPECIFIED SYSTOLIC (CONGESTIVE) HEART FAILURE Status: Acute (2) Community acquired pneumonia Code(s): J18.9 - PNEUMONIA, UNSPECIFIED ORGANISM Status: Acute (3) Sepsis Code(s): A41.9 - SEPSIS, UNSPECIFIED ORGANISM Status: Acute (4) GRAZYNA (acute kidney injury) Code(s): N17.9 - ACUTE KIDNEY FAILURE, UNSPECIFIED Status: Acute (5) Chest pain Code(s): R07.9 - CHEST PAIN, UNSPECIFIED Status: Acute (6) Prolonged QT interval Code(s): R94.31 - ABNORMAL ELECTROCARDIOGRAM [ECG] [EKG] Status: Acute (7) HTN (hypertension) Code(s): I10 - ESSENTIAL (PRIMARY) HYPERTENSION Status: Chronic (8) History of CVA (cerebrovascular accident) Code(s): Z86.73 - PRSNL HX OF TIA (TIA), AND CEREB INFRC W/O RESID DEFICITS Status: Chronic (9) Hx of heart artery stent Code(s): Z95.5 - PRESENCE OF CORONARY ANGIOPLASTY IMPLANT AND GRAFT Status: Chronic (10) Hx of myocardial infarction Code(s): I25.2 - OLD MYOCARDIAL INFARCTION Status: Chronic (11) T2DM (type 2 diabetes mellitus) Status: Chronic - Plan Plan: Patient is a 63 y/o male who presents as a transfer from [facility] ED with a chief complaint of chest pressure that has since resolved. 1. Sepsis 2/2 Bilateral Multilobar Pneumonia, CAP Patient was tachypneic and tachycardic upon presentation * Labs * WBC: 15.1 > 13.1 * LA: 2.1 * COVID-19 ([place]): Negative * RVP ([place]): Negative * ESR: Reportedly elevated * Procal: 0.12 * CRP: 6.06 * D-Dimer: 1.2 * Alk. Phos.: 135 * Imaging * CXR: Suspected COPD w/ left-sided perihilar mass vs. infiltrates * CT: Interstitial infiltrate, bilateral upper, right middle and lower lobe consolidations concerning for infection * Cultures * BCx ([place]): NG@48H * UCx ([place]): NG * Currently on Omnicef & Azithro * Rocephin d/c yesterday 2. HFrEF Euvolemic on exam, no crackles or LE edema, respiratory status stable * Echo: EF 25-30% * s/p 60 mg IV lasix & 20 mg IV * Strict I/Os, daily weights * Consulted Cardiology, appreciate recs. * Carvedilol started 08/04 & increased to 6.125 mg BID * Started on Lasix 20 mg IV daily * Life Vest ordered 3. Typical Chest Pain, ACS r/o- Possibly 2/2 demand ischemia Patient stated that chest pain was similar to his previous CA * EKG- Incomplete LBBB, possibly new * Trop: 0.269 > 0.263 * Stress Test s/p COVID testing * Will discuss with Cardio today * HEART Score: 8 * Hx of previous CA w/ stent placement x1 * Will continue ASA 4. HLD ASCVD: 27.9% * Atorvastatin 40 mg QHS started 5. T2DM Questionable Dx * HgA1c: 5.8 * ACHS Accuchecks, Mild SSI, Bedtime Mild SSI * Will continue to monitor Blood Glucose closely 6. Hx CVA Aware, LUE and LLE weakness currently at baseline 7. COPD, suspected Not in acute exacerbation currently * CXR: Hyperinflated lungs * Hx of Tobacco Abuse * Will start on senior living COPD maintenance meds: Atrovent * Currently being seen by case managment, we will see what he can afford 8. Tobacco Abuse Counseled on the importance of Tobacco Abuse cessation * Nicotine Patch 21 mg Q24H 9. GRAZYNA vs CKD Cr: 2.32 > 1.66 * GFR: 42 * Possibly 2/2 to demand ischemia * Will continue to monitor closely and trend AM labs * Avoid nephrotoxic agents 10. HTN Patient reports home regimen of Lisinopril 10 mg PO daily * Will continue as tolerated by BP * Carvedilol 6.25 mg BID added on 08/04 11. Transaminitis- Resolved AST: 71 on presentation to [facility] ED * Repeat showed downtrending to WNL * Possibly 2/2 acute illness and demand ischemia 12. Alcohol Abuse Tachycardic, concerned this is a component of alcohol use * Librium was given, discontinued today * ASE protocol was in place * Thiamine given Code Status: Full Diet: Heart Health w/ Low Sodium Activity: Ad angelica DVT PPx: Lovenox 40 mg PCP: CC Dispo: Tele inpt for ongoing treatment of CAP. Will wean down on oxygen today with continued diuresis while monitoring kidneys. Will follow up with case management on discharge planning. Expected LOS > 48H. Addendum - Attending - Attending Attestation Date/Time: 07/07/19 7738 I personally evaluated the patient and discussed the management with Dr. Corrales. I agree with the History, Examination, Assessment and Plan documented above with any addition or exceptions noted below. Patient overall stable. Breathing continues to improve. Cards on board for new onset CHF. He is nearing completion of abx for pneumonia. Has deconditioning and poor social situation so dispo and post acute care may be difficult. Renal function with some decrease due to diuresis. Continue therapy.
[2019-07-07] MEDS: Ipratropium Oral Inhaler INH SCH ×4 (06:37→18:03)
[2019-07-07] MEDS: HumaLOG 300 UNITS/3 ML VIAL SC PRN (06:40)
[2019-07-07] MEDS: Cefdinir 300 MG CAP PO SCH ×2 (08:08→20:19)
[2019-07-07] MEDS: Aspirin Chewable 81 MG TAB PO SCH (08:08)
[2019-07-07] MEDS: Nicotine 21 MG PATCH TD SCH (08:08)
[2019-07-07] MEDS: Folic Acid 1 MG TAB PO SCH (08:08)
[2019-07-07] MEDS: Furosemide 40 MG TAB PO SCH (08:08)
[2019-07-07] MEDS: Enoxaparin Sodium 40 MG/0.4 ML SYRINGE SC SCH (08:08)
[2019-07-07] MEDS: Multivitamin W/ Minerals 1 TAB PO SCH (08:08)
[2019-07-07] MEDS: Thiamine 100 MG TAB PO SCH (08:09)
[2019-07-07] MEDS: Magnesium Oxide 400 MG TAB PO SCH (08:09)
[2019-07-07] MEDS: Carvedilol 6.25 MG TAB PO SCH ×3 (08:09→20:19)
--- NOTE | 2019-07-07 10:04 | PRG ---
DATE OF SERVICE: 07/07/2019 SUBJECTIVE: Skyler George has no complaints. He has only walked to the door and back. OBJECTIVE: VITAL SIGNS: He is afebrile, heart rate is 108, respiratory rate is 18, and blood pressure 147/97. He is on 3 L with sats of 97. Intake and output are -120. LUNGS: Clear. HEART: Regular rhythm. ABDOMEN: Soft, nontender. EXTREMITIES: Without edema. LABORATORY DATA: Sodium 136, potassium 4, chloride 104, bicarb 24, BUN 35, and creatinine 1.6. IMPRESSION: 1. Respiratory distress on presentation, secondary predominantly to heart failure, improved, rapidly one dose of Lasix. 2. Coexistent pneumonia. 3. Underlying obstructive lung disease. 4. Chronic kidney disease. 5. Deconditioning. 6. Medical noncompliance. PLAN: Continue current care. Job ID: [id number]
--- NOTE | 2019-07-07 11:06 | RAD ---
SINGLE VIEW OF THE CHEST: COMPARISON: 07/04/2019. HISTORY: Pneumonia. FINDINGS: A single view of the chest shows a normal-size cardiomediastinal silhouette. There are bilateral mul tifocal infiltrates. These have slightly progressed compared to the prior exam. No pleural effusion is seen. IMPRESSION: Worsening multifocal infiltrates. POS: EAA
[2019-07-07] MEDS: Azithromycin 500 MG in Sodium Chloride 0.9% 250 ML 250 ML IVPB SCH (20:20)
[2019-07-07] MEDS: Atorvastatin Calcium 40 MG TAB PO SCH (20:20)
[2019-07-08 05:03] LABS: Anion Gap 12 mmol/L (10-20); BUN (Urea Nitrogen) 36 mg/dL (8.4-25.7); Calc. Creatinine Clearance 46 mL/min (70-130); Calcium 8.7 mg/dL (7.8-10.44); Carbon Dioxide 24 mmol/L (23-31); Chloride 104 mmol/L (98-107); Estimated GFR-MDRD 40; Glucose 113 mg/dL (80-115); Potassium 3.9 mmol/L (3.5-5.1); Sodium 136 mmol/L (136-145)
[2019-07-08] MEDS: HumaLOG 300 UNITS/3 ML VIAL SC PRN (05:54)
--- NOTE | 2019-07-08 06:13 | PDOC.FM ---
- Subjective Subjective: He says he is feeling well. He has no complaints. - Objective MAR Reviewed: Yes Vital Signs & Weight: Vital Signs (12 hours) Temp Pulse Resp BP BP BP Pulse Ox 07/08/19 04:23 93 L 07/08/19 03:15 97.9 F 91 23 H 115/65 90 L 07/07/19 23:41 98 16 93 L 07/07/19 20:19 119/71 07/07/19 19:10 97.5 F L 94 18 119/71 119/71 93 L Weight Admit Weight 76.657 kg Weight 77.564 kg Most Recent Monitor Data Heart Rate from ECG 111 NIBP 158/80 NIBP BP-Mean 106 Respiration from ECG 25 SpO2 98 I&O: 07/06/19 07/07/19 07/08/19 06:59 06:59 06:59 Intake Total 1130 1330 250 Output Total 920 1450 450 Balance 210 -120 -200 Result Diagrams: 07/05/19 03:54 07/08/19 04:18 EKG Reviewed by me: Yes (SR & ST 80-110s) Phys Exam - Physical Examination Constitutional: NAD HEENT: moist MMs, oral pharynx no lesions Neck: no nodes, supple Respiratory: wheezing present Cardiovascular: RRR, no significant murmur, no rub Gastrointestinal: soft, non-tender, positive bowel sounds Musculoskeletal: no edema, pulses present Neurological: moves all 4 limbs Psychiatric: normal affect Skin: no rash, normal turgor Dx/Plan (1) Heart failure with reduced ejection fraction Code(s): I50.20 - UNSPECIFIED SYSTOLIC (CONGESTIVE) HEART FAILURE Status: Acute (2) Community acquired pneumonia Code(s): J18.9 - PNEUMONIA, UNSPECIFIED ORGANISM Status: Acute (3) Sepsis Code(s): A41.9 - SEPSIS, UNSPECIFIED ORGANISM Status: Acute (4) GRAZYNA (acute kidney injury) Code(s): N17.9 - ACUTE KIDNEY FAILURE, UNSPECIFIED Status: Acute (5) Chest pain Code(s): R07.9 - CHEST PAIN, UNSPECIFIED Status: Acute (6) Prolonged QT interval Code(s): R94.31 - ABNORMAL ELECTROCARDIOGRAM [ECG] [EKG] Status: Acute (7) HTN (hypertension) Code(s): I10 - ESSENTIAL (PRIMARY) HYPERTENSION Status: Chronic (8) History of CVA (cerebrovascular accident) Code(s): Z86.73 - PRSNL HX OF TIA (TIA), AND CEREB INFRC W/O RESID DEFICITS Status: Chronic (9) Hx of heart artery stent Code(s): Z95.5 - PRESENCE OF CORONARY ANGIOPLASTY IMPLANT AND GRAFT Status: Chronic (10) Hx of myocardial infarction Code(s): I25.2 - OLD MYOCARDIAL INFARCTION Status: Chronic (11) T2DM (type 2 diabetes mellitus) Status: Chronic - Plan Plan: Patient is a 63 y/o male who presents as a transfer from [facility] ED with a chief complaint of chest pressure that has since resolved. 1. Sepsis 2/2 Bilateral Multilobar Pneumonia, CAP Patient was tachypneic and tachycardic upon presentation * Labs * WBC: 15.1 > 13.1 * LA: 2.1 * COVID-19 ([place]): Negative * RVP ([place]): Negative * ESR: Reportedly elevated * Procal: 0.12 * CRP: 6.06 * D-Dimer: 1.2 * Alk. Phos.: 135 * Imaging * CXR: Suspected COPD w/ left-sided perihilar mass vs. infiltrates * CT: Interstitial infiltrate, bilateral upper, right middle and lower lobe consolidations concerning for infection * Cultures * BCx ([place]): NG@48H * UCx ([place]): NG * Currently on Omnicef & Azithro * Rocephin d/c 07/05 * Azithro completed 07/06 2. HFrEF Euvolemic on exam, no crackles or LE edema, respiratory status stable * Echo: EF 25-30% * s/p 60 mg IV lasix & 20 mg IV * Strict I/Os, daily weights * Consulted Cardiology, appreciate recs. * Carvedilol started 08/04 & increased to 6.125 mg BID * Started on Lasix40 mg PO daily * Life Vest ordered 3. Typical Chest Pain, ACS r/o- Possibly 2/2 demand ischemia Patient stated that chest pain was similar to his previous CT * EKG- Incomplete LBBB, possibly new * Trop: 0.269 > 0.263 * Stress Test s/p COVID testing * Will discuss with Cardio today * HEART Score: 8 * Hx of previous CT w/ stent placement x1 * Will continue ASA 4. HLD ASCVD: 27.9% * Atorvastatin 40 mg QHS started 5. T2DM Questionable Dx * HgA1c: 5.8 * ACHS Accuchecks, Mild SSI, Bedtime Mild SSI * Will continue to monitor Blood Glucose closely 6. Hx CVA Aware, LUE and LLE weakness currently at baseline 7. COPD, suspected Not in acute exacerbation currently * CXR: Hyperinflated lungs * Hx of Tobacco Abuse * Will start on intermediate frame tender COPD maintenance meds: Atrovent * Currently being seen by case managment, we will see what he can afford * Home O2 test ordered. * Nurse reported 68% overnight off of oxygen, but maintained above 89% when he was off oxygen during the day. 8. Tobacco Abuse Counseled on the importance of Tobacco Abuse cessation * Nicotine Patch 21 mg Q24H 9. CKD Cr: 2.32 > 1.73 * GFR: 40 * Possibly 2/2 to demand ischemia * Will continue to monitor closely and trend AM labs * Avoid nephrotoxic agents 10. HTN Patient reports home regimen of Lisinopril 10 mg PO daily * Will continue as tolerated by BP * Carvedilol 6.25 mg BID added on 08/04 11. Transaminitis- Resolved AST: 71 on presentation to [facility] ED * Repeat showed downtrending to WNL * Possibly 2/2 acute illness and demand ischemia 12. Alcohol Abuse Tachycardic, concerned this is a component of alcohol use * Librium was given, discontinued today * ASE protocol was in place * Thiamine given Code Status: Full Diet: 1-4 All w/ Low Sodium Activity: Ad angelica DVT PPx: Lovenox 40 mg PCP: CC Dispo: Tele inpt for ongoing treatment of CAP. Will wean down on oxygen today with continued diuresis while monitoring kidneys and await Cardiology recommendations Expected LOS > 48H. Addendum - Attending - Attending Attestation Date/Time: 07/08/19 3003 I personally evaluated the patient and discussed the management with Dr. Corrales. I agree with the History, Examination, Assessment and Plan documented above with any addition or exceptions noted below. Patient stable. Feels ok about nearing discharge. Will complete course of therapy for pneumonia today. Will need home O2 on discharge. Working with CM about getting med assistance. Cardiology has arranged for [facility] and awaiting any further recs from them. Hopeful to discharge in next day or so.
[2019-07-08] MEDS: Ipratropium Oral Inhaler INH SCH (06:45)
[2019-07-08] MEDS: Multivitamin W/ Minerals 1 TAB PO SCH (08:07)
[2019-07-08] MEDS: Nicotine 21 MG PATCH TD SCH (08:07)
[2019-07-08] MEDS: Aspirin Chewable 81 MG TAB PO SCH (08:07)
[2019-07-08] MEDS: Thiamine 100 MG TAB PO SCH (08:07)
[2019-07-08] MEDS: Enoxaparin Sodium 40 MG/0.4 ML SYRINGE SC SCH (08:07)
[2019-07-08] MEDS: Magnesium Oxide 400 MG TAB PO SCH (08:07)
[2019-07-08] MEDS: Furosemide 40 MG TAB PO SCH (08:07)
[2019-07-08] MEDS: Cefdinir 300 MG CAP PO SCH ×2 (08:07→20:00)
[2019-07-08] MEDS: Carvedilol 6.25 MG TAB PO SCH ×3 (08:07→20:00)
[2019-07-08] MEDS: Folic Acid 1 MG TAB PO SCH (08:07)
--- NOTE | 2019-07-08 13:22 | RAD ---
EXAM: CHEST ONE VIEW: 07/08/19 HISTORY: Wheezing. COMPARISON: 07/07/19. FINDINGS: Again noted are bilateral fairly extensive interstitial and alveolar parenchymal changes primarily in a perihilar distribution which appears slightly improved when compared to the 07/07/19 study but are definitely worse when compared to the 07/04/19 study. Heart size is normal. No significant pleural eff usion. IMPRESSION: Improving bilateral interstitial and alveolar opacity changes primarily in a perihilar distribution f rom 07/07/19. Continued short term follow-up. POS: RRE
[2019-07-08 13:23] VITALS: BMI 25.2
--- NOTE | 2019-07-08 15:40 | PRG ---
DATE OF SERVICE: 07/08/2019 SUBJECTIVE: Skyler George has no complaints. He is in no distress. OBJECTIVE: VITAL SIGNS: He is afebrile. Heart rate in the 90s, respiratory rates in the teens to low 20s, oximetry is 91% to 95% on 2 L cannula. LUNGS: Free of wheezes. HEART: Regular rhythm. ABDOMEN: Soft. IMPRESSION: 1. Pneumonia. I would not expect his radiograph to improve for at least 4 to 6 weeks. His radiograph today is unchanged. 2. Congestive heart failure. 3. Medical noncompliance. He is stable from pulmonary standpoint. I would recommend a followup x-ray in 6 weeks. We will sign off. Job ID: [id number]
[2019-07-08] MEDS: Atorvastatin Calcium 40 MG TAB PO SCH (20:00)
[2019-07-09 04:42] LABS: Anion Gap 12 mmol/L (10-20); BUN (Urea Nitrogen) 33 mg/dL (8.4-25.7); Calc. Creatinine Clearance 44 mL/min (70-130); Carbon Dioxide 25 mmol/L (23-31); Chloride 103 mmol/L (98-107); Estimated GFR-MDRD 37; Glucose 117 mg/dL (80-115); Potassium 4.1 mmol/L (3.5-5.1); Sodium 136 mmol/L (136-145)
--- NOTE | 2019-07-09 06:17 | PDOC.FM ---
- Subjective Subjective: He says he is doing well this morning. - Objective MAR Reviewed: Yes Vital Signs & Weight: Vital Signs (12 hours) Temp Pulse Resp BP BP BP Pulse Ox 07/09/19 04:10 114/70 07/09/19 03:55 98.3 F 96 20 114/70 99 07/09/19 02:48 94 16 93 L 07/08/19 21:31 95 18 94 L 07/08/19 20:00 112/73 07/08/19 19:15 99.2 F 95 20 112/73 112/73 93 L Weight Admit Weight 77.1 kg Weight 78.335 kg Most Recent Monitor Data Heart Rate from ECG 111 NIBP 158/80 NIBP BP-Mean 106 Respiration from ECG 25 SpO2 98 I&O: 07/07/19 07/08/19 07/09/19 06:59 06:59 06:59 Intake Total 7254 465 1548 Output Total 9390 196 0225 Balance -120 -200 345 Result Diagrams: 07/05/19 03:54 07/09/19 04:02 EKG Reviewed by me: Yes (SR 80-90s with PVCs) Phys Exam - Physical Examination Constitutional: NAD HEENT: moist MMs, sclera anicteric Neck: no nodes, supple Respiratory: no wheezing, no rales, no rhonchi, clear to auscultation bilateral Cardiovascular: RRR, no significant murmur, no rub Gastrointestinal: soft, non-tender, positive bowel sounds Musculoskeletal: no edema, pulses present Neurological: moves all 4 limbs Psychiatric: normal affect Skin: no rash, normal turgor Dx/Plan (1) Heart failure with reduced ejection fraction Code(s): I50.20 - UNSPECIFIED SYSTOLIC (CONGESTIVE) HEART FAILURE Status: Acute (2) Community acquired pneumonia Code(s): J18.9 - PNEUMONIA, UNSPECIFIED ORGANISM Status: Acute (3) Sepsis Code(s): A41.9 - SEPSIS, UNSPECIFIED ORGANISM Status: Acute (4) GRAZYNA (acute kidney injury) Code(s): N17.9 - ACUTE KIDNEY FAILURE, UNSPECIFIED Status: Acute (5) Chest pain Code(s): R07.9 - CHEST PAIN, UNSPECIFIED Status: Acute (6) Prolonged QT interval Code(s): R94.31 - ABNORMAL ELECTROCARDIOGRAM [ECG] [EKG] Status: Acute (7) HTN (hypertension) Code(s): I10 - ESSENTIAL (PRIMARY) HYPERTENSION Status: Chronic (8) History of CVA (cerebrovascular accident) Code(s): Z86.73 - PRSNL HX OF TIA (TIA), AND CEREB INFRC W/O RESID DEFICITS Status: Chronic (9) Hx of heart artery stent Code(s): Z95.5 - PRESENCE OF CORONARY ANGIOPLASTY IMPLANT AND GRAFT Status: Chronic (10) Hx of myocardial infarction Code(s): I25.2 - OLD MYOCARDIAL INFARCTION Status: Chronic (11) T2DM (type 2 diabetes mellitus) Status: Chronic - Plan Plan: Patient is a 63 y/o male who presents as a transfer from [facility] ED with a chief complaint of chest pressure that has since resolved. 1. Sepsis 2/2 Bilateral Multilobar Pneumonia, CAP Patient was tachypneic and tachycardic upon presentation * Labs * WBC: 15.1 > 13.1 * LA: 2.1 * COVID-19 ([place]): Negative * RVP ([place]): Negative * ESR: Reportedly elevated * Procal: 0.12 * CRP: 6.06 * D-Dimer: 1.2 * Alk. Phos.: 135 * Imaging * CXR: Suspected COPD w/ left-sided perihilar mass vs. infiltrates * CT: Interstitial infiltrate, bilateral upper, right middle and lower lobe consolidations concerning for infection * Cultures * BCx ([place]): NG@48H * UCx ([place]): NG * Currently on Omnicef & Azithro * Rocephin d/c 07/05 * Azithro completed 07/06 * Omnicef will complete this evening * Repeat CXR in 6 wks 2. HFrEF Euvolemic on exam, no crackles or LE edema, respiratory status stable * Echo: EF 25-30% * s/p 60 mg IV lasix & 20 mg IV * Strict I/Os, daily weights * Consulted Cardiology, appreciate recs. * Carvedilol started 08/04 & increased to 6.125 mg TID- will adjust to 12.5 mg BID * Started on Lasix40 mg PO daily * Life Vest ordered 3. Typical Chest Pain, ACS r/o- Possibly 2/2 demand ischemia Patient stated that chest pain was similar to his previous [place] * EKG- Incomplete LBBB, possibly new * Trop: 0.269 > 0.263 * Stress Test s/p COVID testing * Will discuss with Cardio today * HEART Score: 8 * Hx of previous [place] w/ stent placement x1 * Will continue ASA 4. HLD ASCVD: 27.9% * Atorvastatin 40 mg QHS started 5. T2DM Questionable Dx * HgA1c: 5.8 * ACHS Accuchecks, Mild SSI, Bedtime Mild SSI * Will continue to monitor Blood Glucose closely 6. Hx CVA Aware, LUE and LLE weakness currently at baseline 7. COPD, suspected Not in acute exacerbation currently * CXR: Hyperinflated lungs * Hx of Tobacco Abuse * Will start on prison COPD maintenance meds: Atrovent * Currently being seen by case managment, we will see what he can afford * Home O2 test ordered. * Nurse reported 68% overnight off of oxygen, but maintained above 89% when he was off oxygen during the day. 8. Tobacco Abuse Counseled on the importance of Tobacco Abuse cessation * Nicotine Patch 21 mg Q24H 9. CKD Cr: 2.32 > 1.86 * GFR: 40 * Possibly 2/2 to demand ischemia * Will continue to monitor closely and trend AM labs * Avoid nephrotoxic agents 10. HTN Patient reports home regimen of Lisinopril 10 mg PO daily * Will continue as tolerated by BP * Carvedilol 6.25 mg BID added on 08/04 11. Transaminitis- Resolved AST: 71 on presentation to [facility] ED * Repeat showed downtrending to WNL * Possibly 2/2 acute illness and demand ischemia 12. Alcohol Abuse Tachycardic, concerned this is a component of alcohol use * Librium was given, discontinued today * ASE protocol was in place * Thiamine given Code Status: Full Diet: Heart Health w/ Low Sodium Activity: Ad angelica DVT PPx: Lovenox 40 mg PCP: CC Dispo: Tele inpt for ongoing treatment of CAP. LOS > 48H. Will d/c today. Addendum - Attending - Attending Attestation Date/Time: 07/09/19 5150 I personally evaluated the patient and discussed the management with Dr. Corrales. I agree with the History, Examination, Assessment and Plan documented above with any addition or exceptions noted below. Patient overall stable. He has been approved for home o2 therapy. He will be getting some medication assistance. He is stable for discharge home and will follow up with [facility] next week.
--- NOTE | 2019-07-09 09:23 | PRG ---
DATE OF SERVICE: 07/09/2019 SUBJECTIVE: Skyler George is in no distress. OBJECTIVE: VITAL SIGNS: His oximetry has been in the low 90s on 2 L. He has been as high as 97. I do not see documentation in the computer where his room air saturation is recorded. He apparently is being set up with oxygen. He has a LifeVest on. LUNGS: Unchanged. HEART: Unchanged. ABDOMEN: Unchanged. LABORATORY DATA: His electrolytes are fine. His creatinine is 1.86 today. Creatinine was 2.18 when he was admitted, so this is probably in the range of near his baseline. IMPRESSION: Pneumonia with hypoxemia, which is not surprising. I suspect in 3 weeks will be able to get rid of his oxygen. He can follow up with me in 3 weeks for recheck of his room air saturations. I will recheck a chest x-ray in 6 weeks. Other issues include medical noncompliance with his cardiomyopathy. I have again emphasized the importance of medical compliance. Job ID: [id number]
[2019-07-09] MEDS: Folic Acid 1 MG TAB PO SCH (09:42)
[2019-07-09] MEDS: Nicotine 21 MG PATCH TD SCH (09:43)
[2019-07-09] MEDS: Thiamine 100 MG TAB PO SCH (09:43)
[2019-07-09] MEDS: Cefdinir 300 MG CAP PO SCH ×2 (09:43→14:51)
[2019-07-09] MEDS: Multivitamin W/ Minerals 1 TAB PO SCH (09:43)
[2019-07-09] MEDS: Magnesium Oxide 400 MG TAB PO SCH (09:43)
[2019-07-09] MEDS: Enoxaparin Sodium 40 MG/0.4 ML SYRINGE SC SCH (09:43)
[2019-07-09] MEDS: Furosemide 40 MG TAB PO SCH (09:43)
[2019-07-09] MEDS: Aspirin Chewable 81 MG TAB PO SCH (09:43)
[2019-07-09] MEDS: Carvedilol 6.25 MG TAB PO SCH ×2 (09:43→14:34)
[2019-07-09 12:02] VITALS: BP 127/86; TEMP 97.4
--- NOTE | 2019-07-09 22:16 | DIS ---
DATE OF ADMISSION: 07/02/2019 DATE OF DISCHARGE: 07/09/2019 ADMITTING ATTENDING: Gordo Alfaro MD DISCHARGE ATTENDING: Willie Rick MD RESIDENT: Marek Corrales MD CONSULT: * Pulmonology, Dr. Evans, pneumonia with hypoxemia, suspect in 3 weeks, so we will be able to discontinue oxygen. Follow up in 3 weeks to recheck O2 saturations and recheck chest x-ray in six weeks. I have emphasized the importance of cessation of smoking. * Cardiology, Dr. Bettencourt. The patient discharged on 12.5 mg of carvedilol, LifeVest ordered, and lisinopril was started, but discontinued due to elevated creatinine. PROCEDURES: * Chest x-ray on 07/03 shows multifocal pneumonia. * Chest CT 07/03 worsening bilateral pleural effusions and worsening bilateral pneumonia. Mediastinal and hilar adenopathy. No evidence of PE. * Echo on 07/03 shows an EF of 25% to 30%, akinetic motion of the anterior septal wall noted in the left ventricle, moderate mitral regurg, and mild tricuspid regurg. * Chest x-ray on 07/06 worsening multifocal infiltrates. Chest x-ray on 07/07, improving bilateral interstitial and alveolar opacity changes primarily in the perihilar distribution. PRIMARY DIAGNOSES: 1. Sepsis secondary to bilateral multilobar pneumonia, community-acquired pneumonia. 2. Heart failure, reduced ejection fraction. 3. Typical chest pain, acute coronary syndrome rule out possibly secondary to demand ischemia. 4. Hyperlipidemia, diabetes type 2, and chronic obstructive pulmonary disease. SECONDARY DIAGNOSES: 1. History of cerebrovascular accident 2. Chronic kidney disease 3. Hypertension 4. Transaminitis 5. Alcohol abuse. DISCHARGE MEDICATIONS: 1. Albuterol 2 puffs q.4 hours. 2. Aspirin 81 mg daily. 3. Atorvastatin 40 mg at bedtime. 4. Carvedilol 12.5 mg b.i.d. 5. Lasix 40 mg daily. 6. Ipratropium 0.06% nasal spray two sprays each naris q.i.d. for 30 days. 7. Multivitamin one tablet daily. DISCONTINUED MEDICATION: 1. Lisinopril. HISTORY OF PRESENT ILLNESS: The patient is a 63-year-old male with past medical history of diabetes type 2, hypertension, [place] in 2016 with stent x1, CVA with residual left-sided arm and leg weakness, presents for an intermittent substernal exertional chest pressure , nonradiating, associated with worsening shortness of breath over the last week. The patient reports he presented because of worsening shortness of breath. States that his chest pressure felt like his last [place], associated symptoms include decreased appetite and diaphoresis. He reports his shortness of breath has much improved since his treatment in [place] and chest pain resolved. The patient was tachycardic and tachypneic in [place] ED. Labs there were white blood cell count of 15.1, BNP of 1300, troponin of 0.2, GFR of 28, creatinine clearance of 40, and lactic acid of 2.1. Chest x-ray shows left peripheral density mass versus infiltrate. CT chest shows interstitial infiltrate bilateral upper lower and right middle lobe consolidation concerning for infection, bilateral pleural effusions. EKG shows ST depression in lateral leads. He was given Levaquin, azithromycin, 60 mg of IV Lasix, nitroglycerin, fentanyl, and Lopressor. COVID-19 was drawn and found to be negative. 1. Sepsis secondary to bilateral multilobar pneumonia, community-acquired pneumonia. The patient was tachypneic and tachycardic upon presentation, but resolved before discharge. * Labs * white blood cell count trended from 15 to 13. * Lactic acid was 2.1. * COVID-19 was negative. * Respiratory viral panel was negative. * ESR was elevated. * Procalcitonin was 0.12. * CRP was 6.06. * D-dimer 1.2. * Alkaline phosphatase 135. * Imaging * chest x-ray and CT as noted above. * Cultures showed no growth. * Discharged after receiving full therapy for 7 days of ceftriaxone, Omnicef, and azithromycin. 2. Heart failure, reduced ejection fraction. Euvolemic on exam. No crackles or lower extremity edema. Respiratory status stable. * Echo as noted above. * Status post 20 mg IV Lasix and discharged on Lasix 40 mg daily. * Cardiology as consulted above. 3. Atypical chest pain, acute coronary syndrome rule out possibly secondary to demand ischemia. The patient stated chest pain was similar to his previous [place]. * EKG, incomplete left bundle branch block, possibly new. * Troponins were 0.269 to 0.263. * Stress test was not done during this hospitalization. * HEART score of 8, history of previous [place] with stent placement x1. * Continue aspirin. 4. Hyperlipidemia. ASCVD score of 27.9%. * Continue home medications: Atorvastatin 40 mg. 5. Type 2 diabetes, questionable diagnosis. A1c was 5.8. * Mild sliding scale as well in place with before meals and at bedtime checks. 6. History of CVA. Aware of left upper and lower extremity weakness, currently at baseline. 7. COPD, not in acute exacerbation currently. Does not have the PFTs to denote, but chest x-ray shows hyperinflated lungs and there is wheezing on exam, but resolved prior to discharge, was placed on Atrovent and albuterol before discharge. 8. Tobacco abuse. Counseled on cessation. * Nicotine patch was given during hospitalization. 9. AKA versus CKD. Creatinine trended from 2.3 to 1.66. GFR was 40 likely. 10. Hypertension. Carvedilol 12.5 mg b.i.d. 11. Transaminitis, resolved. AST 71 on presentation. * Repeat showed downtrending to within normal limits. * Possibly secondary to acute illness, demand ischemia. 12. Alcohol abuse, tachycardic. Concern this is a component of alcohol use. * Librium was given, but discontinued after a dose of thiamine was given as well as folate, which were stopped before discharge. DISCHARGE INSTRUCTIONS: 1. Location: Home. 2. Activity: As tolerated. 3. Follow up heart healthy diet, low sodium. Fluid restriction at 1800 mL. 4. Follow up with cardiac rehab in [facility] and [place] on 07/11 at 1:30 p.m., Dr. Drake Bettencourt in 3 to 4 weeks, and Dr. Evans in 3 to 4 weeks. Needs repeat BMP at the visit with [facility]. Job ID: [id number] MTDD
== END 2019-07-09 16:01 | disposition home or self-care (01) | DRG 871 ==
LOC: ERS 00:49 → CCU 01:50 → 2SW 07-03 17:49 → 2NO 07-04 01:44
PROVIDERS: ADMIT Family Medicine; ATTEND Family Medicine
DX: A41.9 Sepsis, unspecified organism (principal); J18.1 Lobar pneumonia, unspecified organism; I50.23 Acute on chronic systolic (congestive) heart failure; I24.8 Other forms of acute ischemic heart disease; J44.0 Chronic obstructive pulmonary disease with (acute) lower respiratory infection; I69.954 Hemiplegia and hemiparesis following unspecified cerebrovascular disease affecting left non-dominant side; N17.9 Acute kidney failure, unspecified; I13.0 Hypertensive heart and chronic kidney disease with heart failure and stage 1 through stage 4 chronic kidney disease, or unspecified chronic kidney disease; E78.5 Hyperlipidemia, unspecified; E11.22 Type 2 diabetes mellitus with diabetic chronic kidney disease; F10.10 Alcohol abuse, uncomplicated; F17.200 Nicotine dependence, unspecified, uncomplicated; I25.5 Ischemic cardiomyopathy; E78.00 Pure hypercholesterolemia, unspecified; R94.31 Abnormal electrocardiogram [ECG] [EKG]; I25.10 Atherosclerotic heart disease of native coronary artery without angina pectoris; I25.2 Old myocardial infarction; Z95.5 Presence of coronary angioplasty implant and graft; Z88.0 Allergy status to penicillin; Z91.14 Patient's other noncompliance with medication regimen
CPT/HCPCS: 36415; 36416; 71045; 71275; 80048; 80053; 80061; 82728; 83036; 83605; 83615; 83735; 84100; 84145; 84443; 84484; 85025; 85379; 85520; 85652; 86140; 93005; 93010; 93306; 93798; 94640; J0456; J0696; J1650; J1940; J3411; J3475; J3490; J7050; J7620; Q9967

== ENCOUNTER 2020-06-25 16:46 | Emergency (ER) | payer MEDICARE, MEDICAID ==
[2020-06-25 17:09] LABS: #Basophils 0.3 thou/uL (0.0-0.2); #Eosinphils 0.2 thou/uL (0.0-0.7); #Lymphocytes 0.8 thou/uL (1.20-3.40); #Monocytes 1.3 thou/uL (0.11-0.59); #Neutrophils 7.2 thou/uL (1.40-6.50); %Basophils 2.7 % (0.0-1.0); %Eosinophils 1.7 % (0.0-10.0); %Lymphocytes 8.5 % (21.0-51.0); %Monocytes 13.4 % (0.0-10.0); %Neutrophils 73.8 % (42.0-75.0); Hemoglobin 14.3 g/dL (14.0-18.0); Mean Corpuscular HGB CONC 31.3 g/dL (32.0-36.0); Mean Corpuscular Volume 79.9 fL (78.0-98.0); Platelet Count 197 thou/uL (130-400); RBC Distribution Width 15.3 % (11.5-14.5); Red Blood Cell (RBC) Count 5.72 mill/uL (4.70-6.10); White Blood Cell (WBC) Count 9.7 thou/uL (4.8-10.8)
[2020-06-25 17:37] LABS: ALT (SGPT) 15 U/L (8-55); AST (SGOT) 18 U/L (5-34); Albumin 3.9 g/dL (3.4-4.8); Alkaline Phosphatase 146 U/L (40-110); Anion Gap 16 mmol/L (10-20); BUN (Urea Nitrogen) 90 mg/dL (8.4-25.7); Bilirubin, Total 0.7 mg/dL (0.2-1.2); Calc. Creatinine Clearance 0 mL/min (70-130); Calcium 11.1 mg/dL (7.8-10.44); Carbon Dioxide 33 mmol/L (23-31); Chloride 89 mmol/L (98-107); Globulin 3.9 g/dL (2.4-3.5); Glucose 144 mg/dL (80-115); Protein, Total 7.8 g/dL (5.8-8.1); Sodium 135 mmol/L (136-145)
[2020-06-25 17:42] LABS: Potassium 2.8 mmol/L (3.5-5.1)
[2020-06-25] MEDS ORDERED: Ketorolac Tromethamine 30 MG/ML VIAL ONE (17:46)
[2020-06-25 17:56] LABS: Bilirubin Negative (Negative); Blood, Urine Negative (Negative); Clarity Clear (Clear); Glucose, Urine (Dipstick) Normal (Negative); Ketone, Urine Negative (Negative); Leukocyte Negative Leu/uL (Negative); Nitrite Negative (Negative); Protein, Urine (Dipstick) 20 mg/dL (Neg-Trace); Specific Gravity, Urine 1.018 (1.002-1.036); Urobilinogen Normal mg/dL (Less than 2)
[2020-06-25 19:04] LABS: CKMB 0.7 ng/mL (0-6.6)
[2020-06-25] MEDS ORDERED: Potassium Chloride 20 MEQ/100 ML PREMIX BAG ONE (19:41)
[2020-06-25] MEDS ORDERED: Potassium Chloride 20 MEQ TAB ONE (19:41)
[2020-06-25 23:18] LABS: Anion Gap 14 mmol/L (10-20); BUN (Urea Nitrogen) 90 mg/dL (8.4-25.7); Calc. Creatinine Clearance 0 mL/min (70-130); Calcium 10.4 mg/dL (7.8-10.44); Carbon Dioxide 32 mmol/L (23-31); Chloride 93 mmol/L (98-107); Glucose 110 mg/dL (80-115); Potassium 3.1 mmol/L (3.5-5.1); Sodium 136 mmol/L (136-145)
== END 2020-06-25 23:40 | disposition home or self-care (01) ==
LOC: ERS 16:46
DX: K59.00 Constipation, unspecified (principal); I25.2 Old myocardial infarction; E11.9 Type 2 diabetes mellitus without complications; I11.0 Hypertensive heart disease with heart failure; I50.9 Heart failure, unspecified; F17.210 Nicotine dependence, cigarettes, uncomplicated
CPT/HCPCS: 36415; 74176; 80053; 81003; 82553; 83605; 84484; 85025; 93005; 96365; 96366; J1885; J3480